=== PATIENT | male | born 1950 | race Caucasian/White ===

== ENCOUNTER → 2017-05-22 09:14 | Outpatient (CLI) | payer MEDICARE, SELFPAY ==
--- NOTE | 2017-05-22 09:20 | XR_ITS ---
XR shoulder RT min 2V HISTORY: ITS.REASON: RT SHOULDER PAIN ORDERING PHYSICIAN: Kaden Smith MD PATIENT AGE: 67 years COMPARISON: None FINDINGS: Mild acromioclavicular arthropathy is present with mild spurring. May result in impingement symptomatology upon the rotator cuff and may be better evaluated with MRI if clinically warranted. The glenohumeral joint is unremarkable. No significant subacromial stenosis. No fracture or dislocation. No lytic change. IMPRESSION: Mild acromioclavicular arthropathy
== END ==
PROVIDERS: PCP Internal Medicine Adolescent Medicine; Visit Provider Internal Medicine Adolescent Medicine
DX: M25.511 Pain in right shoulder (principal)
CPT/HCPCS: 73030

== ENCOUNTER 2017-06-20 13:00 | Outpatient (RCR) | payer MEDICARE, SELFPAY ==
--- NOTE | 2017-05-28 11:54 | HMH.PTOPEV ---
Rehab Outpatient Evaluation Rehab OP Evaluation Start: 05/28/17 11:40 Freq: Status: Active Protocol: Document 05/28/17 11:40 [facility] (Rec: 05/28/17 11:54 [facility] [id number] Electronically Signed By Jody Avery OT 05/28/17 11:40 Outpatient Therapy Subjective History Subjective History Pt is a 67 year old male who reports to therapy for initial evaluation to right shoulder. Pt reports at the end of April, he began having sharp pains in his right shoulder. Pt does not recall a specific injury that would have caused the pain. Pt had an x-ray completed that showed right shoulder arthritis. Pt reports intermittent pain during activities and decreased AROM at right shoulder. Pt is right hand dominant. 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 Pt demonstrates with decreased AROM at right shoulder, slight decreased strength, and pain. Pt will continue to be seen twice a week to address these deficits . Chief Complaint Pain Stiff Clicks Symptom Type Ache Throb Sharp Dull Symptoms Relieved By Prescription Meds Symptoms Aggravated By Physical Activity Lifting Prior Functional Limitations None Current Functional Limitations Reaching Lifting Housework Recreation Activity Symptom Description Intermittent Activity Dependent Level of pain today (0-10) 2 Pain scale - at its best (0-10) 2 Pain scale - at its worst (0-10) 6 Shoulder/Elbow Eval Shoulder Objective Measurements Palpation Tenderness tenderness shoulder exam standard right tenderness over the bicipital tendon right shoulder exam standard tenderness over the SA bursa shoulder right exam standard Shoulder Palpation Findings Tenderness Shoulder ROM Right Shoulder ROM Limitati
== END 2017-06-20 13:01 | disposition home or self-care (01) ==
LOC: OT 13:00
PROVIDERS: Family Provider Internal Medicine Adolescent Medicine; PCP Internal Medicine Adolescent Medicine; Visit Provider Internal Medicine Adolescent Medicine
DX: M25.511 Pain in right shoulder (principal)
CPT/HCPCS: 97014; 97110; 97165; G0283

== ENCOUNTER → 2017-08-23 07:34 | Outpatient (CLI) | payer MEDICARE, SELFPAY ==
[2017-08-23 10:14] LABS: Alanine Aminotransferase 36 U/L (12-78); Albumin Level 3.9 gm/dL (3.4-5.0); Albumin/Globulin Ratio 1.1 (1.1-1.8); Alkaline Phosphatase 81 U/L (46-116); Anion Gap 15.3 mEq/L (5-15); Aspartate Amino Transferase 26 U/L (15-37); Bilirubin,Total 0.6 mg/dL (0.2-1.0); Blood Urea Nitrogen 13 mg/dL (7-18); Calcium 8.9 mg/dL (8.5-10.1); Carbon Dioxide 26 mmol/L (21.0-32.0); Chloride 104 mmol/L (98-107); Chol/HDL Ratio 3.3 (1-3.5); Cholesterol 153 mg/dL (140-200); Estimated Glomerular Filt Rate 75 ml/min (>60); GFR (African American) 90 ML/MIN (>60); Globulin 3.4 gm/dl (1.3-3.2); Glucose 117 mg/dL (74-106); HDL Cholesterol 46 mg/dL (27-67); LDL Cholesterol 79 mg/dL (0-130); Potassium 4.3 mmoL/L (3.5-5.1); Sodium 141 mmol/L (136-145); Total Protein,Serum 7.3 gm/dL (6.4-8.2); Triglycerides 141 mg/dL (30-200); VLDL Cholesterol 28 mg/dL (0-40)
[2017-08-24 18:35] LABS: Microalbumin, Urine <3.0 ug/mL (Not Estab.)
== END ==
PROVIDERS: Visit Provider Internal Medicine Adolescent Medicine
DX: E11.9 Type 2 diabetes mellitus without complications (principal); E78.5 Hyperlipidemia, unspecified; I10 Essential (primary) hypertension
CPT/HCPCS: 36415; 80053; 80061; 82043; 83036

== ENCOUNTER → 2018-01-11 07:47 | Outpatient (CLI) | payer MEDICARE, SELFPAY ==
[2018-01-11 09:42] LABS: Alanine Aminotransferase 38 U/L (12-78); Albumin Level 3.9 gm/dL (3.4-5.0); Albumin/Globulin Ratio 1.2 (1.1-1.8); Alkaline Phosphatase 89 U/L (46-116); Anion Gap 13.2 mEq/L (5-15); Aspartate Amino Transferase 23 U/L (15-37); Bilirubin,Total 0.7 mg/dL (0.2-1.0); Blood Urea Nitrogen 24 mg/dL (7-18); Calcium 8.6 mg/dL (8.5-10.1); Carbon Dioxide 28 mmol/L (21.0-32.0); Chloride 103 mmol/L (98-107); Creatinine,Serum 1.24 mg/dL (0.70-1.30); Estimated Glomerular Filt Rate 58 ml/min (>60); GFR (African American) 71 ML/MIN (>60); Globulin 3.3 gm/dl (1.3-3.2); Glucose 136 mg/dL (74-106); Potassium 4.2 mmoL/L (3.5-5.1); Sodium 140 mmol/L (136-145); Total Protein,Serum 7.2 gm/dL (6.4-8.2)
[2018-01-11 09:44] LABS: Hemoglobin A1C 6.6 % (0.0-7.0)
== END ==
PROVIDERS: PCP Internal Medicine Adolescent Medicine; Visit Provider Internal Medicine Adolescent Medicine
DX: E11.9 Type 2 diabetes mellitus without complications (principal)
CPT/HCPCS: 36415; 80053; 83036

== ENCOUNTER → 2018-03-04 07:10 | Outpatient (CLI) | payer MEDICARE, SELFPAY ==
[2018-03-04 08:42] LABS: Basophils % 0.5 % (0.1-2.0); Eosinophils # 0.2 K/mm3 (0.0-0.4); Eosinophils % 2.8 % (0.1-12.0); Hemoglobin 13.5 g/dL (14.1-18.0); Lymphocytes # 1.4 K/mm3 (0.7-4.5); Lymphocytes % 23.6 % (10-50); Mean Corpuscular HGB Conc 33.8 g/dL (31.8-35.4); Mean Corpuscular Hemoglobin 29.2 pg (27.0-31.2); Mean Corpuscular Volume 86.4 fl (80-94); Mean Platelet Volume 7.2 fl (7.4-10.4); Monocytes # 0.4 K/mm3 (0.1-1.0); Monocytes % 6.4 % (1.7-9.3); Neutrophils # 4.1 K/mm3 (1.8-7.8); Neutrophils % 66.8 % (37.0-80.0); Platelet Count 210 K/mm3 (142-424); Red Blood Count 4.63 M/mm3 (4.60-6.20); Red Cell Distribution Width 13.4 % (11.5-17.5); White Blood Count 6.1 K/mm3 (4.8-10.8)
[2018-03-04 08:44] LABS: Hemoglobin A1C 6.4 % (0.0-7.0)
[2018-03-04 09:02] LABS: Alanine Aminotransferase 32 U/L (12-78); Albumin Level 3.9 gm/dL (3.4-5.0); Albumin/Globulin Ratio 1.2 (1.1-1.8); Alkaline Phosphatase 99 U/L (46-116); Anion Gap 13.3 mEq/L (5-15); Aspartate Amino Transferase 15 U/L (15-37); Bilirubin,Total 0.5 mg/dL (0.2-1.0); Blood Urea Nitrogen 17 mg/dL (7-18); Calcium 8.6 mg/dL (8.5-10.1); Carbon Dioxide 26 mmol/L (21.0-32.0); Chloride 104 mmol/L (98-107); Chol/HDL Ratio 3.3 (1-3.5); Cholesterol 147 mg/dL (140-200); Estimated Glomerular Filt Rate 67 ml/min (>60); GFR (African American) 81 ML/MIN (>60); Globulin 3.3 gm/dl (1.3-3.2); Glucose 144 mg/dL (74-106); HDL Cholesterol 45 mg/dL (27-67); LDL Cholesterol 77 mg/dL (0-130); Potassium 4.3 mmoL/L (3.5-5.1); Sodium 139 mmol/L (136-145); Total Protein,Serum 7.2 gm/dL (6.4-8.2); Triglycerides 125 mg/dL (30-200); VLDL Cholesterol 25 mg/dL (0-40)
== END ==
PROVIDERS: Visit Provider Internal Medicine Adolescent Medicine
DX: E11.9 Type 2 diabetes mellitus without complications (principal); E78.5 Hyperlipidemia, unspecified; I10 Essential (primary) hypertension
CPT/HCPCS: 36415; 80053; 80061; 83036; 85025

== ENCOUNTER → 2018-03-28 10:48 | Outpatient (CLI) | payer MEDICARE, SELFPAY ==
[2018-04-01 13:58] LABS: H. pylori Breath Test Negative (Negative)
== END ==
PROVIDERS: Visit Provider Surgery
DX: A04.8 Other specified bacterial intestinal infections (principal)
CPT/HCPCS: 83013

== ENCOUNTER → 2018-05-01 08:08 | Outpatient (CLI) | payer MEDICARE, SELFPAY ==
--- NOTE | 2018-05-01 08:10 | US_ITS ---
US gallbladder Ordering Physician: Deejay Webber MD Patient Age: 68 years: Male HISTORY: ITS.REASON: RUQ pain abdominal pain. TECHNIQUE: Ultrasound right upper quadrant MW COMPARISON :CT abdomen and pelvis 01/13/2017 FINDINGS Pancreas. Only fair visualization of gallbladder. Not optimally seen Partial obscured by gas. . Limited visualization of head, body and medial tail pancreas grossly unremarkable. Liver. Subtle fatty changes but no focal lesions. No biliary ductal dilatation. Portal vein normal direction flow in caliber. Common duct normal caliber 3.5 mm at hilum of liver Gallbladder. No discrete gallstones. Minimal sludge. No gallbladder wall thickening. Right kidney. Normal size. No obstruction nor mass. 10 cm length. Cortex well-maintained. The previous CT 2016 & 2013 demonstrated a small 15 mm cyst along the lateral margin right kidney, lower pole. This is not identified on today's ultrasound -----IMPRESSION: Gallbladder. No gallstones. No wall thickening. Minimal sludge Common duct normal. Liver. . No focal lesion Suggestion of subtle fatty change
== END ==
PROVIDERS: PCP Internal Medicine Adolescent Medicine; Visit Provider Surgery
DX: R10.11 Right upper quadrant pain (principal)
CPT/HCPCS: 76705

== ENCOUNTER 2018-07-17 11:00 | Outpatient (RCR) | payer MEDICARE, SELFPAY ==
--- NOTE | 2018-06-04 14:09 | HMH.PTOPEV ---
PT Outpatient Evaluation Rehab PT Outpatient Evaluation Start: 06/04/18 13:05 Freq: Status: Active Protocol: Document 06/04/18 13:47 DARRION (Rec: 06/04/18 14:08 DARRION [id number]) Electronically Signed By Tiago Donohue, PT 06/04/18 13:47 Outpatient Therapy Subjective History Subjective History Patient is a 68 year old male presenting to outpatient PT with reports of sub-acute cervical spine pain of insidious onset starting approx 3 months ago. No recent diagnostics to reports. 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 Some symptom relief noted with biofreeze and salon-pas/ lidocaine patches. Comorbidites include OA and diabetes. Chief Complaint Pain Stiff Clicks Symptom Type Sharp Symptoms Relieved By Rest/Positioning Heat Ice OTC Meds Symptoms Aggravated By Physical Activity Lifting Prior Functional Limitations None Current Functional Limitations Reaching Lifting Housework Sleeping Recreation Activity Symptom Description Intermittent Level of pain today (0-10) 3 Pain scale - at its best (0-10) 0 Pain scale - at its worst (0-10) 4 Cervical Eval Palpation Cervical Muscles R Cervical Paraspinal L Cervical Paraspinal R Suboccipital L Suboccipital Cervical/Thoracic Palpation Findings Tenderness Posture Head/C-Spine Posture Sitting Position C-Spine Flattened Flexibility Deficits Upper Trapezius Muscle Length (R) Moderate Tightness (L) Moderate Tightness Levaetor Scapulae Muscle Length (R) Moderate Tightness (L) Moderate Tightness Scalene Group Muscle Length (R) Moderate Tightness (L) Moderate Tightness Pectoralis Minor Muscle Length (R) Moderate Tightness (L) Moderate Tightness Passive Joint Mobility Cervical PIVM Dec: R OA L OA
== END 2018-07-17 11:05 | disposition home or self-care (01) ==
LOC: PT 11:00
PROVIDERS: Visit Provider Internal Medicine Adolescent Medicine
DX: M54.2 Cervicalgia (principal)
CPT/HCPCS: 97010; 97012; 97014; 97035; 97110; 97140; 97163; G0283

== ENCOUNTER → 2018-08-07 07:51 | Outpatient (CLI) | payer MEDICARE, SELFPAY | PROVIDERS: PCP Internal Medicine Adolescent Medicine; Visit Provider Internal Medicine Adolescent Medicine | DX: R55 Syncope and collapse (principal); R53.83 Other fatigue; I10 Essential (primary) hypertension; R06.02 Shortness of breath | CPT/HCPCS: 93017 ==

== ENCOUNTER → 2018-09-08 07:40 | Outpatient (CLI) | payer MEDICARE, SELFPAY ==
--- NOTE | 2018-09-08 07:43 | CA_ITS ---
PROCEDURE: 2-D M-mode and color Doppler study INDICATIONS FOR THE TEST: Chest pain COPD Heart Murmur Tobacco Smoking Palpitations Fatigue+ Syncope Edema Hypertension+Diabetes Mellitus+ Rheumatic Fever SOB VALADEZ Obesity Hyperlipidemia+ Family History HD Additional History ABN GXT, GERD, STENTS 09/05/18 PATIENT INFORMATION HEIGHT: 72 WEIGHT:208 GENDER: Male B/P:128/63 2-D/M-MODE INTERPRETATION: 2-D MEASUREMENTS OBSERVED VALUES IN CMS Right Ventricular Dimension (RVDd) 1.9 Interventricular Septum (Thickness)(IVsd) 1.6 Left Ventricular Internal Dimensions(LVIDd) 4.9 Left Ventricular Posterior Wall (Thickness)(LVPWd) 0.8 Aortic Root 3.3 Aortic Cusp Separation 2.1 Left Atrial Dimensions (LAD) 3.4 2D 1. Left atrium is mildly enlarged, left ventricle is normal size, mild concentric left ventricular hypertrophy, visually estimated to 55% with no regional wall motion abnormality. 2. The right atrium and right ventricle is normal size and contractility. 3. The aortic valve is thickened and calcified difficult to display mobility 4. The mitral and tricuspid valve are grossly normal. 5. The pulmonic valve is poorly present. 6. No significant pericardial effusion noted. DOPPLER INTERROGATION: Doppler interrogation of the aortic, mitral and tricuspid valvular presence of mild mitral and tricuspid regurgitation tricuspid regurgitation jet velocity is inadequate for calculation of the right ventricular systolic pressure, grade 1 diastolic dysfunction seen with tissue Doppler evidence of raised left atrial pressure. CONCLUSION: 1. Mildly enlarged left atrium, normal left ventricular size, mild concentric left ventricular hypertrophy visually estimated ejection fraction of 55% with no regional wall motion abnormality grade 1 diastolic dysfunction seen with tissue Doppler evidence of raised left atrial pressure. 2. Mild mitral and tricuspid regurgitation 3. No significant pericardial effusion noted.
== END ==
PROVIDERS: PCP Internal Medicine Adolescent Medicine; Visit Provider Internal Medicine
DX: E11.9 Type 2 diabetes mellitus without complications (principal); E78.5 Hyperlipidemia, unspecified; I10 Essential (primary) hypertension; R53.1 Weakness; R55 Syncope and collapse; R94.39 Abnormal result of other cardiovascular function study; Z79.84 Long term (current) use of oral hypoglycemic drugs
CPT/HCPCS: 93306

== ENCOUNTER → 2018-09-16 08:39 | Outpatient (CLI) | payer MEDICARE, SELFPAY ==
[2018-09-16 09:31] LABS: Hemoglobin A1C 6.9 % (0.0-7.0)
[2018-09-16 09:58] LABS: Alanine Aminotransferase 41 U/L (12-78); Albumin Level 3.8 gm/dL (3.4-5.0); Albumin/Globulin Ratio 1.2 (1.1-1.8); Alkaline Phosphatase 89 U/L (46-116); Anion Gap 15.9 mEq/L (5-15); Aspartate Amino Transferase 27 U/L (15-37); Bilirubin,Total 0.7 mg/dL (0.2-1.0); Blood Urea Nitrogen 23 mg/dL (7-18); Calcium 8.4 mg/dL (8.5-10.1); Carbon Dioxide 25 mmol/L (21.0-32.0); Chloride 103 mmol/L (98-107); Creatinine,Serum 1.34 mg/dL (0.70-1.30); Estimated Glomerular Filt Rate 53 ml/min (>60); GFR (African American) 64 ML/MIN (>60); Globulin 3.3 gm/dl (1.3-3.2); Glucose 147 mg/dL (74-106); Potassium 3.9 mmoL/L (3.5-5.1); Sodium 140 mmol/L (136-145); Total Protein,Serum 7.1 gm/dL (6.4-8.2)
== END ==
PROVIDERS: Visit Provider Internal Medicine Adolescent Medicine
DX: E11.9 Type 2 diabetes mellitus without complications (principal); Z79.84 Long term (current) use of oral hypoglycemic drugs
CPT/HCPCS: 36415; 80053; 83036

== ENCOUNTER 2018-09-18 08:48 | Outpatient (RCR) | payer MEDICARE, SELFPAY | END 2018-12-15 13:51 | disposition home or self-care (01) | LOC: PT 08:48 | PROVIDERS: Visit Provider Internal Medicine | DX: Z95.5 Presence of coronary angioplasty implant and graft (principal) | CPT/HCPCS: 93798 ==

== ENCOUNTER → 2019-02-02 07:37 | Outpatient (CLI) | payer MEDICARE, SELFPAY ==
[2019-02-02 08:24] LABS: Basophils % 0.7 % (0.1-2.0); Eosinophils # 0.3 K/mm3 (0.0-0.4); Eosinophils % 4.4 % (0.1-12.0); Hematocrit 38.6 % (42.0-52.0); Hemoglobin 13.2 g/dL (14.1-18.0); Lymphocytes # 1.4 K/mm3 (0.7-4.5); Lymphocytes % 22.3 % (10-50); Mean Corpuscular HGB Conc 34.2 g/dL (31.8-35.4); Mean Corpuscular Hemoglobin 31.1 pg (27.0-31.2); Mean Corpuscular Volume 90.7 fl (80-94); Mean Platelet Volume 7.6 fl (7.4-10.4); Monocytes # 0.4 K/mm3 (0.1-1.0); Monocytes % 6.4 % (1.7-9.3); Neutrophils # 4.3 K/mm3 (1.8-7.8); Neutrophils % 66.2 % (37.0-80.0); Platelet Count 206 K/mm3 (142-424); Red Blood Count 4.26 M/mm3 (4.60-6.20); Red Cell Distribution Width 12.9 % (11.5-17.5); White Blood Count 6.4 K/mm3 (4.8-10.8)
[2019-02-02 10:03] LABS: Alanine Aminotransferase 27 U/L (12-78); Albumin Level 3.8 gm/dL (3.4-5.0); Albumin/Globulin Ratio 1.2 (1.1-1.8); Alkaline Phosphatase 97 U/L (46-116); Anion Gap 11.8 mEq/L (5-15); Aspartate Amino Transferase 18 U/L (15-37); Bilirubin,Total 0.8 mg/dL (0.2-1.0); Blood Urea Nitrogen 20 mg/dL (7-18); Calcium 8.7 mg/dL (8.5-10.1); Carbon Dioxide 28 mmol/L (21.0-32.0); Chloride 104 mmol/L (98-107); Chol/HDL Ratio 3.2 (1-3.5); Cholesterol 128 mg/dL (140-200); Estimated Glomerular Filt Rate 55 ml/min (>60); GFR (African American) 66 ML/MIN (>60); Globulin 3.1 gm/dl (1.3-3.2); Glucose 150 mg/dL (74-106); HDL Cholesterol 40 mg/dL (27-67); LDL Cholesterol 64 mg/dL (0-130); Potassium 4.8 mmoL/L (3.5-5.1); Sodium 139 mmol/L (136-145); Total Protein,Serum 6.9 gm/dL (6.4-8.2); Triglycerides 122 mg/dL (30-200); VLDL Cholesterol 24 mg/dL (0-40)
[2019-02-02 11:08] LABS: Hemoglobin A1C 6.8 % (0.0-7.0)
== END ==
PROVIDERS: Visit Provider Internal Medicine Adolescent Medicine
DX: E11.9 Type 2 diabetes mellitus without complications (principal); E78.5 Hyperlipidemia, unspecified; I10 Essential (primary) hypertension; Z79.84 Long term (current) use of oral hypoglycemic drugs
CPT/HCPCS: 36415; 80053; 80061; 83036; 85025

== ENCOUNTER → 2019-05-11 10:07 | Outpatient (CLI) | payer MEDICARE, SELFPAY ==
--- NOTE | 2019-05-11 10:42 | XR_ITS ---
PROCEDURE: XR CHEST 2V CLINICAL HISTORY: dyspnea COMPARISON: CXR CHEST(2 VIEWS-NOT PORTABLE) from 01/13/2017 FINDINGS: The cardiomediastinal silhouette and pulmonary vascularity are within normal limits. The lungs are clear without infiltrates, suspicious nodules, or pleural effusions. Linear densities in the right perihilar lung field are consistent with scarring. Unchanged bilateral calcified granulomas are noted. Coronary stent is incidentally noted. No acute bony abnormalities. IMPRESSION: No acute findings. Dictated by: Clem Guerrero 05/11/2019 15:10 Electronically signed by Clem Guerrero in [facility] 05/11/2019 15:10
== END ==
PROVIDERS: PCP Internal Medicine Adolescent Medicine; Visit Provider Internal Medicine
DX: I25.10 Atherosclerotic heart disease of native coronary artery without angina pectoris; R06.00 Dyspnea, unspecified; E78.5 Hyperlipidemia, unspecified; I10 Essential (primary) hypertension; Z95.5 Presence of coronary angioplasty implant and graft
CPT/HCPCS: 71046

== ENCOUNTER → 2019-05-16 07:45 | Outpatient (CLI) | payer MEDICARE, SELFPAY ==
[2019-05-16 08:48] LABS: Chloride 103 mmol/L (98-107)
[2019-05-16 08:49] LABS: Potassium 4.7 mmoL/L (3.5-5.1); Sodium 139 mmol/L (136-145)
[2019-05-16 08:51] LABS: Blood Urea Nitrogen 19 mg/dl (9-20); Estimated Glomerular Filt Rate 67 ml/min (>60); GFR (African American) 81 ML/MIN (>60)
[2019-05-16 08:52] LABS: Anion Gap 14.7 mEq/L (5-15); Calcium 9.1 mg/dl (8.4-10.2); Carbon Dioxide 26 mmol/L (22.0-30.0); Glucose 148 mg/dl (74-100)
== END ==
PROVIDERS: Visit Provider Urology
DX: E78.5 Hyperlipidemia, unspecified (principal); I10 Essential (primary) hypertension; I25.10 Atherosclerotic heart disease of native coronary artery without angina pectoris; R06.00 Dyspnea, unspecified; Z95.5 Presence of coronary angioplasty implant and graft
CPT/HCPCS: 36415; 80048

== ENCOUNTER → 2019-09-09 07:49 | Outpatient (CLI) | payer MEDICARE, SELFPAY ==
[2019-09-09 08:34] LABS: Basophils % 0.4 % (0.1-2.0); Eosinophils # 0.2 K/mm3 (0.0-0.4); Eosinophils % 3.1 % (0.1-12.0); Hematocrit 37.8 % (42.0-52.0); Hemoglobin 13.4 g/dL (14.1-18.0); Lymphocytes # 1.3 K/mm3 (0.7-4.5); Mean Corpuscular HGB Conc 35.5 g/dL (31.8-35.4); Mean Corpuscular Hemoglobin 30.9 pg (27.0-31.2); Mean Corpuscular Volume 86.9 fl (80-94); Mean Platelet Volume 7.5 fl (7.4-10.4); Monocytes # 0.3 K/mm3 (0.1-1.0); Neutrophils # 3.8 K/mm3 (1.8-7.8); Neutrophils % 67.5 % (37.0-80.0); Platelet Count 196 K/mm3 (142-424); Red Blood Count 4.35 M/mm3 (4.60-6.20); Red Cell Distribution Width 13.2 % (11.5-17.5); White Blood Count 5.7 K/mm3 (4.8-10.8)
[2019-09-09 08:53] LABS: Chloride 105 mmol/L (98-107)
[2019-09-09 08:54] LABS: Potassium 4.8 mmoL/L (3.5-5.1); Sodium 138 mmol/L (136-145)
[2019-09-09 08:56] LABS: Alanine Aminotransferase 30 U/L (12-78); Albumin/Globulin Ratio 1.4 (1.1-1.8); Alkaline Phosphatase 100 U/L (38-126); Anion Gap 8.8 mEq/L (5-15); Aspartate Amino Transferase 28 U/L (17-59); Bilirubin,Total 0.9 mg/dl (0.2-1.3); Blood Urea Nitrogen 18 mg/dl (9-20); Carbon Dioxide 29 mmol/L (22.0-30.0); Estimated Glomerular Filt Rate 67 ml/min (>60); GFR (African American) 81 ML/MIN (>60); Globulin 2.8 g/dL (1.3-3.2); Total Protein,Serum 6.8 g/dl (6.3-8.2)
[2019-09-09 08:57] LABS: Chol/HDL Ratio 3.3 (1-3.5); Cholesterol 127 mg/dl (140-200); Glucose 161 mg/dl (74-100); HDL Cholesterol 38 mg/dl (40-60); Triglycerides 138 mg/dl (30-150); VLDL Cholesterol 28 mg/dL (0-40)
[2019-09-09 09:08] LABS: Direct LDL Cholesterol 71.92 mg/dL (100-129)
[2019-09-09 09:59] LABS: Hemoglobin A1C 7.1 % (4.0-6.0)
== END ==
PROVIDERS: Visit Provider Internal Medicine Adolescent Medicine
DX: I25.10 Atherosclerotic heart disease of native coronary artery without angina pectoris (principal); E78.5 Hyperlipidemia, unspecified; E11.9 Type 2 diabetes mellitus without complications; Z79.84 Long term (current) use of oral hypoglycemic drugs
CPT/HCPCS: 36415; 80053; 80061; 83036; 85025

== ENCOUNTER → 2020-03-10 16:14 | Outpatient (CLI) | payer MEDICARE, SELFPAY ==
--- NOTE | 2020-03-10 16:40 | CT_ITS ---
PROCEDURE: CT ANGIO CHEST CLINCIAL INDICATION: OTHER CHEST PAIN Sharp chest pain in center the chest, severe pain in the back the COMPARISON: No exams were available for comparison TECHNIQUE: IV Contrast: 70ML Isovue 370 Axial images obtained with sagittal and coronal reformats. All CT scans at the facility use one or more dose reduction, viz: automated exposure control, ma/kV adjustment per patient size (including targeted exams where dose is matched to indication, i.e. head), or iterative reconstruction technique. FINDINGS: HEART AND MEDIASTINAL STRUCTURES: No evidence of pulmonary embolus, aortic aneurysm, or dissection. LUNGS AND PLEURAL SPACES: Scattered areas scarring and/or atelectatic changes noted with evidence of old granulomatous disease. There is a tubular shaped density in the right upper lobe measuring 3.5 x 1.1 cm. This is associated with some atelectatic change in the right upper lobe. The a small oval density is present in the left perihilar region at 1 x 0.6 cm with an additional opacity in the left perihilar region at 1.5 x 0.5 cm with some air density noted at the distal aspect of this abnormality. There is 11 mm nodular density in the left suprahilar area within left upper lobe medially. A 6 mm nodules present in the right apex and may contain a small focus of calcification. BONY STRUCTURES: No acute bony abnormalities apparent. UPPER ABDOMEN: Unremarkable. ADDITIONAL FINDINGS: Gynecomastia IMPRESSION: 1. No evidence of pulmonary embolus. 2. Scattered areas of atelectasis and/or fibrotic change. 3. Tubular density in the right upper lobe with a oval nodules in the left perihilar region. These could be due to areas of dilated fluid-filled bronchi, inflammatory or infectious nodules, or even even neoplasm. The 6 mm right upper lobe nodule and 1 cm irregular opacity left upper lobe medially also noted. Suggest 8-12 week follow-up to confirm stability or resolution. If these areas persist then, PET CT may be needed for further evaluation. Dictated by: David Guy MD 03/11/2020 05:40 David Guy MD in [facility] 03/11/2020 05:40
[2020-03-10 17:24] LABS: Basophils % 0.6 % (0.1-2.0); Eosinophils # 0.2 K/mm3 (0.0-0.4); Eosinophils % 3.3 % (0.1-12.0); Hematocrit 43.3 % (42.0-52.0); Hemoglobin 14.8 g/dL (14.1-18.0); Lymphocytes # 1.6 K/mm3 (0.7-4.5); Lymphocytes % 23.7 % (10-50); Mean Corpuscular HGB Conc 34.3 g/dL (31.8-35.4); Mean Corpuscular Hemoglobin 30.3 pg (27.0-31.2); Mean Corpuscular Volume 88.2 fl (80-94); Mean Platelet Volume 7.3 fl (7.4-10.4); Monocytes # 0.5 K/mm3 (0.1-1.0); Monocytes % 7.5 % (1.7-9.3); Neutrophils # 4.3 K/mm3 (1.8-7.8); Neutrophils % 64.9 % (37.0-80.0); Platelet Count 228 K/mm3 (142-424); Red Blood Count 4.91 M/mm3 (4.60-6.20); Red Cell Distribution Width 13.3 % (11.5-17.5); White Blood Count 6.6 K/mm3 (4.8-10.8)
[2020-03-10 17:38] LABS: Alanine Aminotransferase 44 U/L (12-78); Albumin Level 4.8 g/dl (3.5-5.0); Albumin/Globulin Ratio 1.5 (1.1-1.8); Alkaline Phosphatase 100 U/L (38-126); Anion Gap 12.9 mEq/L (5-15); Aspartate Amino Transferase 40 U/L (17-59); Bilirubin,Total 0.8 mg/dl (0.2-1.3); Blood Urea Nitrogen 18 mg/dl (9-20); Calcium 9.9 mg/dl (8.4-10.2); Carbon Dioxide 31 mmol/L (22.0-30.0); Chloride 100 mmol/L (98-107); Estimated Glomerular Filt Rate 55 ml/min (>60); GFR (African American) 66 ML/MIN (>60); Globulin 3.2 g/dL (1.3-3.2); Glucose 156 mg/dl (74-100); Potassium 4.9 mmoL/L (3.5-5.1); Sodium 139 mmol/L (136-145)
[2020-03-10 17:43] LABS: D-Dimer 0.83 ug/mL (0.15-8.0)
== END ==
PROVIDERS: PCP Internal Medicine Adolescent Medicine; Visit Provider Internal Medicine Adolescent Medicine
DX: R07.89 Other chest pain (principal); K21.9 Gastro-esophageal reflux disease without esophagitis
CPT/HCPCS: 36415; 71275; 80053; 85025; 85378; Q9967

== ENCOUNTER → 2020-03-17 09:49 | Outpatient (CLI) | payer MEDICARE, SELFPAY ==
[2020-03-17 10:29] LABS: Erythrocyte Sedimentation Rate 16 mm/hr (0-20)
[2020-03-18 17:05] LABS: RA Latex Turbid. <10.0 IU/mL (0.0-13.9)
[2020-03-21 13:06] LABS: Angiotensin Converting Enzyme 39 U/L (14-82)
[2020-03-21 16:55] LABS: Anti-Centromere B Antibodies <0.2 AI (0.0-0.9); Anti-Jo-1 <0.2 AI (0.0-0.9); Anti-Smith Antibody <0.2 AI (0.0-0.9); Antichromatin Antibodies <0.2 AI (0.0-0.9); Antiscleroderma-70 Antibodies <0.2 AI (0.0-0.9); RNP Antibodies <0.2 AI (0.0-0.9); Sjogren's Anti-SS-A <0.2 AI (0.0-0.9); Sjogren's Anti-SS-B <0.2 AI (0.0-0.9)
[2020-03-22 08:23] LABS: Anti-DNA (DS) Ab Qn 3 IU/mL (0-9)
== END ==
PROVIDERS: Visit Provider Internal Medicine Adolescent Medicine
DX: R91.8 Other nonspecific abnormal finding of lung field (principal); Z86.2 Personal history of diseases of the blood and blood-forming organs and certain disorders involving the immune mechanism
CPT/HCPCS: 36415; 82164; 85651; 86225; 86235; 86431

== ENCOUNTER → 2020-04-06 08:10 | Outpatient (CLI) | payer MEDICARE, SELFPAY ==
[2020-04-06 09:10] LABS: Alanine Aminotransferase 39 U/L (12-78); Albumin Level 4.4 g/dl (3.5-5.0); Albumin/Globulin Ratio 1.5 (1.1-1.8); Alkaline Phosphatase 105 U/L (38-126); Anion Gap 12.7 mEq/L (5-15); Aspartate Amino Transferase 38 U/L (17-59); Blood Urea Nitrogen 19 mg/dl (9-20); Calcium 9.3 mg/dl (8.4-10.2); Carbon Dioxide 29 mmol/L (22.0-30.0); Chloride 101 mmol/L (98-107); Chol/HDL Ratio 3.4 (1-3.5); Cholesterol 147 mg/dl (140-200); Estimated Glomerular Filt Rate 60 ml/min (>60); GFR (African American) 73 ML/MIN (>60); Glucose 170 mg/dl (74-100); HDL Cholesterol 43 mg/dl (40-60); Potassium 4.7 mmoL/L (3.5-5.1); Sodium 138 mmol/L (136-145); Total Protein,Serum 7.4 g/dl (6.3-8.2); Triglycerides 197 mg/dl (30-150); VLDL Cholesterol 39 mg/dL (0-40)
[2020-04-06 09:21] LABS: Direct LDL Cholesterol 75.45 mg/dL (100-129)
[2020-04-06 10:46] LABS: Hemoglobin A1C 7.4 % (4.0-6.0)
== END ==
PROVIDERS: Visit Provider Internal Medicine Adolescent Medicine
DX: E11.9 Type 2 diabetes mellitus without complications (principal); E78.5 Hyperlipidemia, unspecified; Z79.84 Long term (current) use of oral hypoglycemic drugs
CPT/HCPCS: 36415; 80053; 80061; 83036

== ENCOUNTER → 2020-04-11 10:05 | Outpatient (CLI) | payer MEDICARE, SELFPAY ==
[2020-04-11 11:19] LABS: Coronavirus 19 IgG Antibody Positive (Negative); Coronavirus 19 IgM Antibody Negative (Negative)
== END ==
PROVIDERS: Visit Provider Surgery
DX: Z01.812 Encounter for preprocedural laboratory examination (principal); Z86.16 Personal history of COVID-19; R13.10 Dysphagia, unspecified; Z13.810 Encounter for screening for upper gastrointestinal disorder
CPT/HCPCS: 36415; 86328

== ENCOUNTER 2020-04-12 07:56 | Day surgery (SDC) | payer MEDICARE, SELFPAY ==
[2020-04-08 15:38] VITALS: BMI 27.8
[2020-04-12 08:13] VITALS: BP 149/71; PULSE 60; RESP 20; TEMP 36.6; O2SAT 98
[2020-04-12 08:23] VITALS: O2SAT 98
--- NOTE | 2020-04-12 08:33 | P.PN_ITS ---
[facility] Anesthesia Checklist - Patient Identification Patient Identification: Arm Band - Structural Data Admitted From: Home Planned Operative Procedure/s: tiva Consent for Planned Operative Procedure(s) Verified: Yes Verified Documents: Surgical Consent - Additional verifications Anesthesia Reactions: No - Anesthesia Plan Anesthesia Risk discussed: Yes Anesthesia Plan: Verified ASA Class: II Anesthesia Type: General [facility] History I have reviewed the patient's past medical history: Yes Medical History: Reports:: Coronary Artery Disease, Diabetes Mellitus Type 2, Gastroesophageal Reflux Disease(GERD), Hyperlipidemia, Hypertension, Kidney Stones Denies:: Cancer, Diabetes Mellitus Type 1, Internal Pacemaker, Lung Disease, MRSA, Seizures *Have you ever received a pneumonia vaccine?: Yes *Have you received a flu vaccine this season?: Yes Anesthesia experience/problems:: no problems Other Surgeries: Yes: Cardiac Catheterization, Colonoscopy, Coronary Stent, Other (kidney stones, heel sx). No: Pacemaker Amputation: No Fractures: No - *Social History Last grade of school completed: High school graduate Smoking Status: Never smoker Alcohol Intake: never Alcohol Intake Frequency:: other Substance Use Type: denies use *Occupational Status:: employed, retired Housing: house Household Members: spouse *Travel in the last 8 weeks: None Family Hx:: Cancer, Diabetes
[2020-04-12 08:35] VITALS: BP 100/53; PULSE 62; RESP 18; TEMP 36.7; O2SAT 99
--- NOTE | 2020-04-12 08:35 | HMH.SCOPE ---
- Procedure: Date: 04/12/20 Patient Date of :: 1950 Procedure Performed:: Esophagogastroduodenoscopy with biopsies Indications:: Patient is a 70-year-old male referred by Dr. Kaden Smith for EGD. I had seen him in the past. I had performed EGD and colonoscopy on him on 02/18/2018. He did have a small polyp removed. He was found to have some mild gastritis and had positive H. pylori. At that time he was having some dyspepsia type symptoms and I had performed gallbladder work-up and he had an ultrasound done on 05/01/2018 which was negative for gallstones. Over the past several months he has had some recurrent symptoms consistent with indigestion, and reflux. He increased his pantoprazole. He actually had a severe attack where he had pain in the epigastrium and right upper quadrant radiating through to his back and underwent CT angiogram. He states that he has had symptoms occurring postprandially. He is having to severely limit his diet with very bland foods. Given his symptomatology and prior history of H. pylori I do feel that it may be reasonable to proceed with upper endoscopy initially. This is to be arranged. However, I am highly suspicious for possible gallbladder etiology. If his upper endoscopy is unremarkable may repeat gallbladder work-up. Performing Provider:: Deejay Webber MD Referring Provider:: Kaden Smith MD Sedation:: MAC sedation Procedure:: Patient was taken to endoscopy procedure room. He was positioned in a lateral decubitus position. Adequate intravenous sedation was achieved with anesthesia titration of propofol. Olympus endoscope was inserted via the oropharynx advanced through the esophagus. Esophagus appeared unremarkable. Gastroesophageal junction was encountered. There was no obvious Silva's esophagus. Stomach was cannulated and insufflated. Retroflexion revealed no evidence of any hiatal hernia. Gastric mucosa appeared unremarkable. Pylorus was traversed and the endoscope was advanced past the duodenal sweep. Duodenum appeared unremarkable. Within the gastric lumen gastric biopsy was obtained for CLOtest for H. pylori. Gastric biopsy was obtained for histopathologic analysis. Biopsy was obtained at the gastroesophageal junction. Stomach was desufflated and the endoscope was withdrawn. Findings:: Overall normal-appearing upper endoscopy Recommendations:: I will follow-up on histopathology. I will order a gallbladder ultrasound to be done prior to his follow-up in the office. May require HIDA scan if this is unremarkable for gallstones. Complications:: None Estimated blood obtained (mL): 2
[2020-04-12 08:45] VITALS: BP 110/64; PULSE 64; RESP 16; TEMP 36.7; O2SAT 99
[2020-04-12 08:55] VITALS: BP 112/58; PULSE 60; RESP 16; TEMP 36.7; O2SAT 98
[2020-04-12 09:05] VITALS: BP 125/71; PULSE 59; RESP 16; TEMP 36.7; O2SAT 98
[2020-04-13 11:44] LABS: POC Glucose,Bedside 179 (70-110)
== END 2020-04-12 09:08 | disposition home or self-care (01) ==
PROVIDERS: PCP Internal Medicine Adolescent Medicine; Visit Provider Surgery
PROC: 0DJ08ZZ Inspection of Upper Intestinal Tract, Via Natural or Artificial Opening Endoscopic (ICD-10-PCS; CPT 43235; principal; 2020-04-12 09:00)
DX: R10.11 Right upper quadrant pain (principal); R10.13 Epigastric pain; I25.10 Atherosclerotic heart disease of native coronary artery without angina pectoris; E11.9 Type 2 diabetes mellitus without complications; K21.9 Gastro-esophageal reflux disease without esophagitis; E78.5 Hyperlipidemia, unspecified; I10 Essential (primary) hypertension; Z87.442 Personal history of urinary calculi; Z79.82 Long term (current) use of aspirin; Z79.899 Other long term (current) drug therapy; Z79.84 Long term (current) use of oral hypoglycemic drugs
CPT/HCPCS: 43239; 82962; 87339; 88305

== ENCOUNTER → 2020-04-14 07:43 | Outpatient (CLI) | payer MEDICARE, SELFPAY ==
--- NOTE | 2020-04-14 07:43 | US_ITS ---
PROCEDURE: US GALLBLADDER CLINICAL INDICATION: RUQ pain COMPARISON: No exams were available for comparison FINDINGS: Pancreas: Pancreas is not well delineated due to overlying bowel gas. CT or MRI without and with contrast with pancreatic protocol may provide further evaluation if clinically desired. Liver: Diffuse increased echogenicity of the liver with poor through transmission of sound consistent with hepatic steatosis. No focal liver lesion demonstrated. There is appropriate direction of blood flow within non dilated portal vein. Right kidney: Unremarkable appearing. No hydronephrosis. There is a small right renal measuring 18 mm Gallbladder: No stones are evident. There is no gallbladder wall thickening. Common duct is normal in diameter. May be a small amount of sludge in the gallbladder somewhat difficult to evaluate due to the technique. IMPRESSION: 1. Diffuse increased echogenicity of the liver with poor through transmission of sound consistent with hepatic steatosis. No focal liver lesion demonstrated. There is appropriate direction of blood flow within non dilated portal vein.. 2. Possible small amount of gallbladder sludge Dictated by: David Guy MD 04/14/2020 09:03 David Guy MD in [facility] 04/14/2020 09:03
== END ==
PROVIDERS: PCP Internal Medicine Adolescent Medicine; Visit Provider Surgery
DX: R10.11 Right upper quadrant pain (principal)
CPT/HCPCS: 76705

== ENCOUNTER → 2020-05-02 09:56 | Outpatient (CLI) | payer MEDICARE, SELFPAY ==
--- NOTE | 2020-05-02 09:56 | NM_ITS ---
PROCEDURE: NM HEPATOBILIARY W PHARM CLINICAL INDICATION: Right upper quad pain COMPARISON: US US GALLBLADDER from 04/14/2020 TECHNIQUE: DOSE: 8.22 mCi technetium Choletec and 1.9 mcg of CCK FINDINGS: Homogeneous activity is present within the hepatic parenchyma. Activity is present in the gallbladder by 15 minutes. Activity is present in the small bowel by 10 minutes. The gallbladder ejection fraction is calculated to be 13 percent. The patient did report pain with CCK infusion. IMPRESSION: 1. No evidence of common or cystic duct obstruction. 2. Low gallbladder ejection fraction of 13 percent. Mild pain reported with CCK infusion. These findings may be seen with gallbladder dyskinesia. Correlation with clinical parameters recommended Dictated by: David Guy MD 05/02/2020 13:56 David Guy MD in [facility] 05/02/2020 13:56
--- NOTE | 2020-05-02 11:20 | HMH.ITSHM ---
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 []SILDENAFIL NAPROXEN LOSARTAN CARVEDILOL CLOPIDOGREL JANUVIA PANTOPRAZOLE METFORMIN FUROSEMIDE ATORVASTATIN ASA
== END ==
PROVIDERS: PCP Internal Medicine Adolescent Medicine; Visit Provider Surgery
DX: R10.11 Right upper quadrant pain (principal)
CPT/HCPCS: 78227; A9537; J2805

== ENCOUNTER → 2020-05-20 11:38 | Outpatient (CLI) | payer MEDICARE, SELFPAY ==
--- NOTE | 2020-05-20 12:00 | CT_ITS ---
PROCEDURE: CT CHEST W CON CLINCAL INDICATION: MASS OF RT LUNG Follow-up right lung mass COMPARISON: CT CT ANGIO CHEST from 03/10/2020 TECHNIQUE: IV Contrast: 75ml Isovue 370 Axial images obtained with sagittal and coronal reformats. All CT scans at the facility use one or more dose reduction, viz: automated exposure control, ma/kV adjustment per patient size (including targeted exams where dose is matched to indication, i.e. head), or iterative reconstruction technique. FINDINGS: No mediastinal or hilar mediastinal mass. There are some small paraesophageal lymph nodes present along the right and posterior aspect of the lower esophagus with the largest node measuring approximately 1.4 cm. 6 mm right apical nodule appears stable. Ovoid mass once again noted in the right upper lobe the measuring up to 3.4 by 1 by 1 cm. This is not significantly changed compared to the previous exam. There are fibrotic changes present superior to to this lesion. There is 11 mm nodule in the left suprahilar area of the left upper lobe not significantly changed. An additional han mm opacity is present in the left upper lobe medially unchanged possibly due to an area of scarring. No new nodules are evident. No effusions or infiltrates. An irregular opacity is also present in the right lower lobe at 7 mm not significantly changed associated with some fibrotic change. Incidental note of bilateral gynecomastia. IMPRESSION: Overall stable CT appearance of the chest. Bilateral pulmonary nodules with dominant nodule in the right upper lobe once again noted. Mildly prominent nodes are present in the paraesophageal region as well not significantly changed. The lack of short term resolution argues against acute infection. Neoplasm is therefore consideration. Postinflammatory scarring with old granulomatous disease is also consideration. Suggest PET-CT for further evaluation. Pulmonology consult with bronchoscopy may also be of further value. Dictated by: David Guy MD 05/21/2020 13:23 David Guy MD in [facility] 05/21/2020 13:23
[2020-05-20 12:03] LABS: Blood Urea Nitrogen 20 mg/dl (9-20); Estimated Glomerular Filt Rate 50 ml/min (>60); GFR (African American) 61 ML/MIN (>60)
== END ==
PROVIDERS: PCP Internal Medicine Adolescent Medicine; Visit Provider Internal Medicine Adolescent Medicine
DX: R91.8 Other nonspecific abnormal finding of lung field (principal)
CPT/HCPCS: 36415; 71260; 82565; 84520; Q9967

== ENCOUNTER → 2020-09-02 08:29 | Outpatient (CLI) | payer MEDICARE, SELFPAY ==
[2020-09-02 10:01] LABS: Anion Gap 13.7 mEq/L (5-15); Blood Urea Nitrogen 24 mg/dl (9-20); Calcium 9.1 mg/dl (8.4-10.2); Carbon Dioxide 24 mmol/L (22.0-30.0); Chloride 106 mmol/L (98-107); Estimated Glomerular Filt Rate 60 ml/min (>60); GFR (African American) 73 ML/MIN (>60); Glucose 193 mg/dl (74-100); Potassium 4.7 mmoL/L (3.5-5.1); Sodium 139 mmol/L (136-145)
[2020-09-05 15:31] LABS: Angiotensin Converting Enzyme 29 U/L (14-82)
[2020-09-07 00:03] LABS: Aspergillus flavus Negative (Neg:<1:1); Aspergillus fumigatus Negative (Neg:<1:1); Aspergillus niger Negative (Neg:<1:1); Blastomyces Antibody Negative (Neg:<1:1)
== END ==
PROVIDERS: Visit Provider Internal Medicine Pulmonary Disease
DX: J84.10 Pulmonary fibrosis, unspecified (principal); R06.00 Dyspnea, unspecified; Z20.822 Contact with and (suspected) exposure to COVID-19
CPT/HCPCS: 36415; 80048; 82164; 86606; 86612; U0003

== ENCOUNTER 2020-09-05 08:06 | Day surgery (SDC) | payer MEDICARE, SELFPAY ==
[2020-08-30 12:15] VITALS: BMI 27.1
[2020-09-05] VITALS (13 sets, daily range): BP systolic 97–162; BP diastolic 62–83; PULSE 55–73; RESP 14–20; TEMP 36.1–36.3; O2SAT 93–100
--- NOTE | 2020-09-05 08:53 | P.PN_ITS ---
[facility] Anesthesia Checklist - Structural Data Admitted From: Home Planned Operative Procedure/s: bronchoscopy Consent for Planned Operative Procedure(s) Verified: Yes - Additional verifications Anesthesia Reactions: No - Airway Assessment C-Spine Mobility Assessed: Yes TMJ Mobility Assessed: Yes Dentition: Good Dentition - Neurological Assessment Level of Consciousness: Awake, Alert, Appropriate - Anesthesia Plan Anesthesia Risk discussed: Yes Anesthesia Plan: Verified ASA Class: III Anesthesia Type: General [facility] History I have reviewed the patient's past medical history: Yes Medical History: Reports:: Coronary Artery Disease, Diabetes Mellitus Type 2, Gastroesophageal Reflux Disease(GERD), Hyperlipidemia, Hypertension, Kidney Stones Denies:: Cancer, Diabetes Mellitus Type 1, Internal Pacemaker, Lung Disease, MRSA, Seizures *Have you ever received a pneumonia vaccine?: Yes *Have you received a flu vaccine this season?: Yes Anesthesia experience/problems:: none Other Surgeries: Yes: Cardiac Catheterization, Colonoscopy, Coronary Stent, EGD, Other (kidney stones, heel sx). No: Pacemaker Amputation: No Fractures: No - *Social History Last grade of school completed: High school graduate Smoking Status: Never smoker Alcohol Intake: never Alcohol Intake Frequency:: other Substance Use Type: denies use *Occupational Status:: employed, retired Housing: house Household Members: spouse *Travel in the last 8 weeks: None Family Hx:: Cancer, Diabetes
[2020-09-05 09:16] LABS: POC Glucose,Bedside 165 (70-110)
--- NOTE | 2020-09-05 12:01 | HMH.BRONCH ---
- Procedure: Date: 09/05/20 Patient Date of :: 1950 Procedure Performed:: Bronchoscopy, bronchoalveolar lavage, endobronchial ultrasound with fine-needle aspiration Indications:: Hilar lymphadenopathy Performing Provider:: Scooter Gill MD Referring Provider:: Dr. Clark Sedation:: GA Procedure:: Endobronchial ultrasound with fine-needle aspiration. Airway examination and bronchoalveolar lavage. A clean EBUS bronchoscopy was advanced to the ET tube, with lymph node surveillance performed. Patient noted to have lymphadenopathy at stations 10 L and 4R. No significant Lymphadenopathy noted on the right side. Multiple calcifications were noted since patient 7, no FNA was performed. EBUS FNA with scant lymphoid tissue identified. No evidence of malignancy, granulomatous identified on preliminary examination. EBUS bronchoscopy was retracted and diagnostic bronchoscopy was advanced for airway examination and airways were examined up to subsegmental bronchi. Mild narrowing of the right middle lobe bronchus noted. No obvious secretions/mucous plugging noted. Anthracotic pigmentation noted. Bronchoalveolar lavage was performed in the right middle lobe and was sent for BAL differential,bacterial, fungal and AFB stain culture along with cytopathology. Patient tolerated the procedure well with no complications. Findings:: Please see the procedure note Recommendations:: F/U clinic with final results Complications:: none Estimated blood obtained (mL): 5
--- NOTE | 2020-09-05 12:08 | HMH.ANESI ---
[facility] Anesthesia Record Part I Intake, IV Amount: 900 Estimated blood loss (mL): 10 Urine output (mL): 0 Blood Pressure: 97/66 SaO2: 93 Pulse Rate: 73 Respiratory Rate: 14 Temperature: 97 F Patient is:: Awake Stable to PACU at:: 12:05
--- NOTE | 2020-09-05 12:39 | PC.NURSE ---
1230-MD at bedside, no further orders given 1236-detailed report called to Eben,RN 1239-pt transported to post op via stretcher w/kennedi rails up, pt stable, vss upon discharge from pacu
--- NOTE | 2020-09-08 09:50 | P.PN_ITS ---
[facility] Anesthesia Record Part II Discharge Time: 12:35 Destination: Surgical Day Care (OP Surgery) PACU nurse assessment reviewed?: Yes Patient Condition:: Good Anesthesia Complications:: None Swallowing reflex intact?: Yes Cyanosis?: No Blood Pressure: 132/74 Pulse Rate: 67 Temperature: 97.1 F Mental Status: Alert & Oriented Pain level:: 0 Nausea and/or vomitting:: None Intake, IV Amount: 0
[2020-09-08 09:51] VITALS: BP 132/74; PULSE 67; TEMP 36.2
== END 2020-09-05 13:53 ==
LOC: OR 08:08
PROVIDERS: PCP Internal Medicine Adolescent Medicine; Visit Provider Internal Medicine Pulmonary Disease
DX: R59.0 Localized enlarged lymph nodes (principal); R93.89 Abnormal findings on diagnostic imaging of other specified body structures; K21.9 Gastro-esophageal reflux disease without esophagitis; E11.9 Type 2 diabetes mellitus without complications; I10 Essential (primary) hypertension; Z79.84 Long term (current) use of oral hypoglycemic drugs; Z79.899 Other long term (current) drug therapy
CPT/HCPCS: 31624; 31652; 82962; 88112; 88172; 88173; 88305; J0330

== ENCOUNTER → 2020-09-21 09:35 | Outpatient (CLI) | payer MEDICARE, SELFPAY | PROVIDERS: PCP Internal Medicine Adolescent Medicine; Visit Provider Internal Medicine Pulmonary Disease | DX: R06.00 Dyspnea, unspecified (principal) | CPT/HCPCS: 94060; 94618; 94726; 94729 ==

== ENCOUNTER → 2020-10-10 07:27 | Outpatient (CLI) | payer MEDICARE, SELFPAY ==
[2020-10-10 08:33] LABS: Basophils % 0.4 % (0.1-2.0); Eosinophils # 0.1 K/mm3 (0.0-0.4); Eosinophils % 1.7 % (0.1-12.0); Hematocrit 39.1 % (42.0-52.0); Hemoglobin 13.5 g/dL (14.1-18.0); Lymphocytes # 1.3 K/mm3 (0.7-4.5); Lymphocytes % 19.4 % (10-50); Mean Corpuscular HGB Conc 34.4 g/dL (31.8-35.4); Mean Corpuscular Hemoglobin 29.4 pg (27.0-31.2); Mean Corpuscular Volume 85.6 fl (80-94); Mean Platelet Volume 7.4 fl (7.4-10.4); Monocytes # 0.3 K/mm3 (0.1-1.0); Monocytes % 4.8 % (1.7-9.3); Neutrophils # 4.9 K/mm3 (1.8-7.8); Neutrophils % 73.7 % (37.0-80.0); Platelet Count 204 K/mm3 (142-424); Red Blood Count 4.57 M/mm3 (4.60-6.20); Red Cell Distribution Width 13.4 % (11.5-17.5); White Blood Count 6.6 K/mm3 (4.8-10.8)
[2020-10-10 08:56] LABS: Alanine Aminotransferase 28 U/L (12-78); Albumin Level 4.1 g/dl (3.5-5.0); Albumin/Globulin Ratio 1.5 (1.1-1.8); Alkaline Phosphatase 108 U/L (38-126); Anion Gap 13.7 mEq/L (5-15); Aspartate Amino Transferase 27 U/L (17-59); Bilirubin,Total 0.7 mg/dl (0.2-1.3); Blood Urea Nitrogen 16 mg/dl (9-20); Calcium 8.7 mg/dl (8.4-10.2); Carbon Dioxide 28 mmol/L (22.0-30.0); Chloride 104 mmol/L (98-107); Estimated Glomerular Filt Rate 74 ml/min (>60); GFR (African American) 90 ML/MIN (>60); Globulin 2.7 g/dL (1.3-3.2); Glucose 164 mg/dl (74-100); Potassium 4.7 mmoL/L (3.5-5.1); Sodium 141 mmol/L (136-145); Total Protein,Serum 6.8 g/dl (6.3-8.2)
[2020-10-10 09:01] LABS: C-Reactive Protein 0.8 mg/L (0-4)
[2020-10-10 09:19] LABS: 25-OH Vitamin D, Total 34.1 ng/mL (30-100)
[2020-10-10 09:45] LABS: Vitamin B12 346 pg/mL (239-931)
[2020-10-10 10:24] LABS: Erythrocyte Sedimentation Rate 28 mm/hr (0-20)
[2020-10-12 11:31] LABS: Hemoglobin A1C 7.4 % (4.0-6.0)
== END ==
PROVIDERS: Visit Provider Internal Medicine Adolescent Medicine
DX: E11.9 Type 2 diabetes mellitus without complications (principal); E78.5 Hyperlipidemia, unspecified; I25.10 Atherosclerotic heart disease of native coronary artery without angina pectoris; Z86.2 Personal history of diseases of the blood and blood-forming organs and certain disorders involving the immune mechanism; E66.3 Overweight; Z68.30 Body mass index [BMI] 30.0-30.9, adult; Z79.84 Long term (current) use of oral hypoglycemic drugs
CPT/HCPCS: 80053; 82306; 82607; 83036; 85025; 85651; 86140

== ENCOUNTER → 2020-11-29 09:06 | Outpatient (CLI) | payer MEDICARE, SELFPAY ==
[2020-11-29 09:44] LABS: Basophils % 0.3 % (0.1-2.0); Eosinophils # 0.1 K/mm3 (0.0-0.4); Eosinophils % 1.5 % (0.1-12.0); Hematocrit 40.7 % (42.0-52.0); Hemoglobin 13.5 g/dL (14.1-18.0); Lymphocytes # 1.4 K/mm3 (0.7-4.5); Lymphocytes % 19.6 % (10-50); Mean Corpuscular HGB Conc 33.2 g/dL (31.8-35.4); Mean Corpuscular Hemoglobin 29.8 pg (27.0-31.2); Mean Corpuscular Volume 89.6 fl (80-94); Mean Platelet Volume 7.6 fl (7.4-10.4); Monocytes # 0.4 K/mm3 (0.1-1.0); Monocytes % 5.1 % (1.7-9.3); Neutrophils # 5.1 K/mm3 (1.8-7.8); Neutrophils % 73.5 % (37.0-80.0); Platelet Count 208 K/mm3 (142-424); Red Blood Count 4.54 M/mm3 (4.60-6.20)
[2020-11-29 11:09] LABS: Alanine Aminotransferase 25 U/L (12-78); Albumin Level 4.2 g/dl (3.5-5.0); Albumin/Globulin Ratio 1.4 (1.1-1.8); Alkaline Phosphatase 99 U/L (38-126); Aspartate Amino Transferase 27 U/L (17-59); Bilirubin,Total 0.7 mg/dl (0.2-1.3); Blood Urea Nitrogen 24 mg/dl (9-20); Calcium 9.3 mg/dl (8.4-10.2); Carbon Dioxide 25 mmol/L (22.0-30.0); Chloride 107 mmol/L (98-107); Chol/HDL Ratio 3.2 (1-3.5); Cholesterol 141 mg/dl (140-200); Estimated Glomerular Filt Rate 55 ml/min (>60); GFR (African American) 66 ML/MIN (>60); Glucose 138 mg/dl (74-100); HDL Cholesterol 44 mg/dl (40-60); Sodium 141 mmol/L (136-145); Total Protein,Serum 7.2 g/dl (6.3-8.2); Triglycerides 100 mg/dl (30-150); VLDL Cholesterol 20 mg/dL (0-40)
[2020-11-29 11:19] LABS: Direct LDL Cholesterol 74.28 mg/dL (100-129)
[2020-11-30 07:46] LABS: Hemoglobin A1C 7.3 % (4.0-6.0)
== END ==
PROVIDERS: Visit Provider Internal Medicine Adolescent Medicine
DX: I25.10 Atherosclerotic heart disease of native coronary artery without angina pectoris (principal); E11.9 Type 2 diabetes mellitus without complications; E78.5 Hyperlipidemia, unspecified; Z79.84 Long term (current) use of oral hypoglycemic drugs
CPT/HCPCS: 36415; 80053; 80061; 83036; 85025

== ENCOUNTER → 2020-12-21 12:42 | Outpatient (CLI) | payer MEDICARE, SELFPAY ==
--- NOTE | 2020-12-21 12:43 | CA_ITS ---
APPROVED REPORT EXAM: Comprehensive 2D, Doppler, and color-flow Echocardiogram Inner Layer Scrubber Tender: Taty Espinoza RT(R) Ht: 5 ft 8 in Wt: 199lbs BSA: 2.04 BP: 134/65 mmHg Indications: CAD, SOA, HTN, DM, hyperlipidemia, 3 cardiac stents, DD 2D Dimensions LVOT 2.09 cm (M/F) 1.5-2.5 LA Volume 40.70 mL LA Volume Index 19.95 mL/m2 (M/F) 16-34 M-Mode Dimensions RVDd 2.48 cm (0.9-2.6) LA Diam 2.58 cm (1.9-4.0) LVDd 4.77 cm (3.5-5.7) Ao Diam 3.19 cm (2.0-3.7) LVDs 3.56 cm (3.5-5.7) IVSd 0.84 cm (0.6-1.1) PWd 0.84 cm (0.6-1.1) EF (Teich) 50.00% FS 25.40% EDV (Teich) 106.00 mL ESV (Teich) 53.00 mL LV Diastology E Decel Time 230.00 (160-240 msec) E/A Ratio 0.9 MED E' 8.20 (< 7 cm/sec) E'/MED E' Ratio 10.95 (>14) LAT E' 9.20 (<10 cm/sec) E/LAT E' Ratio 9.76 (>14) Mitral Valve MV E Max Fco. 90.00 (40-130 cm/s) MV A Velocity 104.00 (40-130 cm/s) E/A Ratio 0.86 MV Decel. Time 230.00 (160-240 ms) MV PHT 67.00 ms Left Ventricle Left atrium is mildly enlarged, left ventricle is normal size, mild concentric left ventricular hypertrophy, visually estimated ejection fraction 55% with no regional wall motion abnormality, grade 1 diastolic dysfunction seen without tissue Doppler evidence of raise left atrial pressure. Right Ventricle Right atrium and right ventricle are mildly enlarged with normal contractility. Aortic Valve Aortic valve is minimally thickened and fibrosed, there is no aortic stenosis or aortic insufficiency. Mitral Valve Mitral valve is grossly normal, there is trace mitral regurgitation. Tricuspid Valve Tricuspid valve grossly normal, there is trace tricuspid regurgitation, tricuspid regurgitation jet velocity is inadequate for calculation of the right ventricular systolic pressure. Pulmonic Valve Pulmonic valve is poorly visualized. Great Vessels Aortic root is normal size. Inferior vena cava is poorly visualized. Pericardium No significant pericardial effusion noted. Conclusion 1. Mild biatrial enlargement, normal left ventricular size, mild concentric left hypertrophy, visually estimated ejection fraction 55% with no regional wall motion abnormality, grade 1 diastolic dysfunction seen without tissue Doppler evidence of raise left atrial pressure. 2. Mildly enlarged right ventricle with normal contractility. 3. Trace mitral and tricuspid regurgitation. 4. No significant pericardial effusion noted. Electronically signed by : Julio Cesar Jennings MD 12/22/2020 13:40:32
== END ==
PROVIDERS: PCP Internal Medicine Adolescent Medicine; Visit Provider Urology
DX: E78.2 Mixed hyperlipidemia (principal); I10 Essential (primary) hypertension; I25.10 Atherosclerotic heart disease of native coronary artery without angina pectoris; Z95.5 Presence of coronary angioplasty implant and graft
CPT/HCPCS: 93306

== ENCOUNTER → 2021-01-18 10:39 | Outpatient (CLI) | payer MEDICARE, SELFPAY ==
[2021-01-18 16:56] LABS: Anion Gap 17.4 mEq/L (5-15); Blood Urea Nitrogen 20 mg/dl (9-20); Calcium 9.1 mg/dl (8.4-10.2); Carbon Dioxide 24 mmol/L (22.0-30.0); Chloride 104 mmol/L (98-107); Estimated Glomerular Filt Rate 66 ml/min (>60); GFR (African American) 80 ML/MIN (>60); Glucose 228 mg/dl (74-100); Potassium 4.4 mmoL/L (3.5-5.1); Sodium 141 mmol/L (136-145)
[2021-01-18 17:27] LABS: Prostate Specific Ag Screen 1.2 ng/ml (0.0-4.0)
== END ==
PROVIDERS: Visit Provider Internal Medicine Adolescent Medicine
DX: E11.9 Type 2 diabetes mellitus without complications (principal); R35.0 Frequency of micturition; Z12.5 Encounter for screening for malignant neoplasm of prostate; Z79.84 Long term (current) use of oral hypoglycemic drugs
CPT/HCPCS: 36415; 80048; G0103

== ENCOUNTER → 2021-02-24 14:05 | Outpatient (CLI) | payer MEDICARE, SELFPAY ==
--- NOTE | 2021-02-24 14:05 | CT_ITS ---
PROCEDURE INFORMATION: Exam: CT Chest Without Contrast; Diagnostic Exam date and time: 02/24/2021 2:05 PM Age: 71 years old Clinical indication: Condition or disease; Other: 6 month follow up TECHNIQUE: Imaging protocol: Diagnostic computed tomography of the chest without contrast. Radiation optimization: All CT scans at this facility use at least one of these dose optimization techniques: automated exposure control; mA and/or kV adjustment per patient size (includes targeted exams where dose is matched to clinical indication); or iterative reconstruction. COMPARISON: CT CHEST W CON 05/20/2020 12:51 PM FINDINGS: Lungs: 12 mm nodule in the right upper lobe series 3, image 23. Additional small calcified nodules bilaterally consistent with prior granulomatous disease Pleural spaces: Unremarkable. No pneumothorax. No pleural effusion. Heart: Coronary artery calcifications may indicate coronary artery disease. Aorta: Unremarkable. No aortic aneurysm. Lymph nodes: Calcified mediastinal and hilar lymph nodes Kidneys and ureters: 17 mm simple cyst lateral right kidney . No follow-up imaging recommended . Bones/joints: Unremarkable. No acute fracture. Soft tissues: Unremarkable. IMPRESSION: 12 mm nodule in the right upper lobe series 3, image 23. It has decreased in size from 13.1 mm For both low risk and high risk patients, consider CT Chest at 3 months, PET/CT, or biopsy. (Reference: Demetrio) References: Demetrio Valdes, et al. Guidelines for Management of Incidental Pulmonary Nodules Detected on CT Images: From the Fleischner Society 2017. Radiology. 2017;284(1):228-243. COMMENTS: Consistent with the [employer]'s Incidental Findings Committee white paper (J Am Luz Radiol 2018): Any incidental renal lesion less than 1 cm or classified as too small to characterize, or any incidental cystic renal lesion characterized as simple-appearing, is likely benign. No follow-up imaging is recommended for these lesions per consensus recommendations based on imaging criteria.
== END ==
PROVIDERS: PCP Internal Medicine Adolescent Medicine; Visit Provider Internal Medicine Pulmonary Disease
DX: R91.1 Solitary pulmonary nodule (principal)
CPT/HCPCS: 71250

== ENCOUNTER → 2022-02-22 15:07 | Outpatient (CLI) | payer MEDICARE, SELFPAY ==
--- NOTE | 2022-02-22 15:08 | CT_ITS ---
FINAL REPORT CLINICAL HISTORY: follow up, area of interest seen on a low dose chest ct scan done last year. COMPARISON: February 2021 FINDINGS: Axial images were obtained from the lung apex to the mid abdomen by computed tomography. Coronal reformatted images were obtained. This study was performed with techniques to keep radiation doses as low as reasonably achievable, (ALARA). Individualized dose reduction techniques using automated exposure control or adjustment of mA and/or kV according to the patient's size were employed. There is no axillary adenopathy. There are calcified subcarinal lymph nodes. Heart size is normal. There is no pericardial or pleural effusion. Limited images of the upper abdomen are unremarkable. There is a 13 x 8 mm right upper lobe nodule the previously measured 13 x 8 mm. This is entirely stable. There is mild irregular density in the periphery of the right lower lobe on image 45 of series 2 that is similar in appearance to the prior exam. There are calcified granulomas in both lungs. IMPRESSION: Stable nodules. Reviewed, Interpreted and Dictated by Jose Antonio Jc MD Transcribed by Bennett Hansen Authenticated and [facility]
== END ==
PROVIDERS: PCP Internal Medicine Adolescent Medicine; Visit Provider Internal Medicine Pulmonary Disease
DX: R91.8 Other nonspecific abnormal finding of lung field (principal)
CPT/HCPCS: 71250

== ENCOUNTER → 2022-03-08 07:02 | Outpatient (CLI) | payer MEDICARE, SELFPAY ==
[2022-03-08 08:40] LABS: Basophils % 0.7 % (0.1-2.0); Eosinophils # 0.1 K/mm3 (0.0-0.4); Eosinophils % 2.7 % (0.1-12.0); Hematocrit 42.8 % (42.0-52.0); Lymphocytes # 0.9 K/mm3 (0.7-4.5); Lymphocytes % 18.9 % (10-50); Mean Corpuscular HGB Conc 32.8 g/dL (31.8-35.4); Mean Corpuscular Hemoglobin 28.9 pg (27.0-31.2); Mean Corpuscular Volume 88.2 fl (80-94); Monocytes # 0.3 K/mm3 (0.1-1.0); Monocytes % 6.7 % (1.7-9.3); Neutrophils # 3.4 K/mm3 (1.8-7.8); Platelet Count 181 K/mm3 (142-424); Red Blood Count 4.86 M/mm3 (4.60-6.20); Red Cell Distribution Width 13.7 % (11.5-17.5); White Blood Count 4.9 K/mm3 (4.8-10.8)
[2022-03-08 08:49] LABS: Hemoglobin A1C 7.3 % (4.0-6.0)
[2022-03-08 09:08] LABS: Alanine Aminotransferase 22 U/L (12-78); Albumin Level 4.3 g/dl (3.5-5.0); Albumin/Globulin Ratio 1.7 (1.1-1.8); Alkaline Phosphatase 128 U/L (38-126); Anion Gap 12.7 mEq/L (5-15); Aspartate Amino Transferase 34 U/L (17-59); Blood Urea Nitrogen 21 mg/dl (9-20); Calcium 9.3 mg/dl (8.4-10.2); Carbon Dioxide 26 mmol/L (22.0-30.0); Chloride 104 mmol/L (98-107); Chol/HDL Ratio 3.4 (1-3.5); Cholesterol 155 mg/dl (140-200); Estimated Glomerular Filt Rate 43 ml/min (>60); GFR (African American) 52 ML/MIN (>60); Globulin 2.6 g/dL (1.3-3.2); Glucose 142 mg/dl (74-100); HDL Cholesterol 46 mg/dl (40-60); Potassium 4.7 mmoL/L (3.5-5.1); Sodium 138 mmol/L (136-145); Total Protein,Serum 6.9 g/dl (6.3-8.2); Triglycerides 76 mg/dl (30-150); VLDL Cholesterol 15 mg/dL (0-40)
[2022-03-08 09:21] LABS: Direct LDL Cholesterol 85.61 mg/dL (100-129)
== END ==
PROVIDERS: PCP Internal Medicine Adolescent Medicine; Visit Provider Internal Medicine Adolescent Medicine
DX: I25.10 Atherosclerotic heart disease of native coronary artery without angina pectoris (principal); E78.5 Hyperlipidemia, unspecified; E11.9 Type 2 diabetes mellitus without complications; Z79.84 Long term (current) use of oral hypoglycemic drugs
CPT/HCPCS: 36415; 80053; 80061; 83036; 85025

== ENCOUNTER → 2022-06-05 06:45 | Outpatient (CLI) | payer MEDICARE, SELFPAY ==
--- NOTE | 2022-06-05 06:46 | CA_ITS ---
APPROVED REPORT EXAM: Comprehensive 2D, Doppler, and color-flow Echocardiogram Crayon Sawyer: TERESA Heart, RVS Ht: 6 ft 0 in Wt: 201lbs BSA: 2.14 BP: 140/66 mmHg Indications: Diastolic dysfunction, CAD-stent, Atypical CP, COPD,DM 2D Dimensions LVDd 4.14 cm M: 4.2 - 5.9 LVEF (Visual) 60.70 % LVDs 2.81 cm M: 2.5 - 4.0 LA Volume 35.70 mL Aortic Root 3.24 cm M: 3.1 - 3.7 LA Volume Index 16.532240 mL/m2 (M/F) 16-34 Left Atrium 3.04 cm M: 3.0 - 4.0 LVOT 1.96 cm (M/F) 1.5-2.5 M-Mode Dimensions RVDd 2.00 cm (0.9-2.6) LA Diam 4.16 cm (1.9-4.0) LVDd 5.14 cm (3.5-5.7) Ao Diam 3.55 cm (2.0-3.7) LVDs 3.96 cm (3.5-5.7) IVSd 0.86 cm (0.6-1.1) PWd 0.78 cm (0.6-1.1) EF (Teich) 45.80% EPSs 0.22 cm FS 23.00% EDV (Teich) 126.10 mL ESV (Teich) 68.30 mL LV Diastology E Decel Time 273.00 (160-240 msec) E/A Ratio 0.70 MED E' 5.80 (< 7 cm/sec) MED A' 9.80 cm/s E'/MED E' Ratio 14.88 (>14) LAT E' 11.50 (<10 cm/sec) LAT A' 8.60 cm/s E/LAT E' Ratio 7.50 (>14) Aortic Valve LVOT Max 95.00 (70-110 cm/s) LVOT VTI 18.05 cm AoV Peak Fco. 137.00 (50-130 cm/s) AO Peak GR. 7.50 mmHg AO Mean GR. 3.70 (<5 mmHg) AO VTI 25.05 (18-25 cm) FRIDA (VTI) 2.17 (2.5-4.5 cm2) Mitral Valve MV A Velocity 123.00 (40-130 cm/s) E/A Ratio 0.70 MV Decel. Time 273.00 (160-240 ms) Pulmonary Valve PV Peak Velocity 126.00 (50-150 cm/s) Tricuspid Valve TR P. Velocity 191.00 cm/s RAP Estimate 10.00 mmHg RVSP 24.60 mmHg Left Ventricle Left atrium is mildly enlarged, left ventricle is normal size mild concentric left ventricular hypertrophy, estimated ejection fraction 55% with no regional wall motion abnormality, grade 1 diastolic dysfunction seen without tissue Doppler evidence of late left atrial pressure. Right Ventricle Right atrium and right ventricular mildly enlarged with normal contractility. Aortic Valve Aortic valve is minimally thickened and fibrosed there is no aortic stenosis aortic insufficiency. Mitral Valve Mitral valve is grossly normal, there is trace mitral regurgitation. Tricuspid Valve Tricuspid grossly normal, there is trace tricuspid regurgitation, tricuspid regurgitation jet velocity is inadequate for calculation of the right ventricular systolic pressure. Pulmonic Valve Pulmonic valve is poorly visualized. Great Vessels Aortic root is normal size. Inferior vena cava is poorly visualized. Pericardium No significant pericardial effusion noted. Conclusion 1. Mild biatrial enlargement, normal left ventricular size, mild concentric left ventricular hypertrophy, estimated ejection fraction 55% with no regional wall motion abnormality, grade 1 diastolic dysfunction seen without tissue Doppler evidence of late left atrial pressure. 2. Mildly enlarged right ventricle with normal contractility. 3. Trace mitral and tricuspid regurgitation. 4. No significant pericardial effusion noted. 5. Inferior vena cava is poorly visualized. Electronically signed by : Julio Cesar Jennings MD 06/05/2022 19:47:14
--- NOTE | 2022-06-05 06:46 | CA_ITS ---
APPROVED REPORT Exam: Exercise Treadmill Technologist: Olinda Levy Ht: 6 ft 0 in Wt: 201 lbs BSA: 2.14 m2 HR: 64 bpm BP: 154/61 mmHg Indications: Chest pain Medical History Medications: Losartan,,,,, Pantoprazole,,,,, Atorvastatin,,,,, Farxiga,,,,, SyMBICORT,,,,, TAMSULOSIN,,,,, CloPIdogrel,,,,, Januvia,,,,, Magnesium,,,,, Celecoxib,,,,, Metamucil,,,,, KErendia,,,,, Stress Test Details Test: Sandoval HR Resting HR: 66 bpm Max Heart Rate (APMHR): 149.222346 bpm Max HR Achieved: 145 bpm Target HR (85% APMHR): 126.818714 bpm % of APMHR: 97.32 Recovery HR: 94 bpm BP Resting BP: 154.0/61.0 mmHg Max BP: 220.0/60.0 mmHg Recovery BP: 172.0/64.0 mmHg ECG Resting ECG: Normal sinus rhythm Clinical Exercise duration: 08:30 min Highest Stage Achieved: Exercise capacity: 10.1 METs Stress ECG Conclusion Patient exercised 8:30 into stage III of Sandoval Protocol. Test stopped due to shortness of air, fatigue. Symptoms: No chest pain. Arrhythmias/Ectopy: Occasional PAC and PVC. ST-T Changes: Within normal ST response to exercise. Conclusion: Normal GXT. Myoview images reported separately. Test Summary REST . . . . . . . Sitting REST 04:02 0.0 0.0 66 . 154/ 61 . . Stage 1 01:00 10.0 1.7 85 . . . . Stage 1 02:00 10.0 1.7 95 . . . . Stage 1 03:00 10.0 1.7 102 . 200/ 65 . . Stage 2 01:00 12.0 2.5 108 . . . . Stage 2 02:00 12.0 2.5 114 . . . . Stage 2 03:00 12.0 2.5 121 . 220/ 60 . . Stage 3 01:00 14.0 3.4 137 . . . . Stage 3 . . . . . . . Myoview Injected Stage 3 02:00 14.0 3.4 141 . . . . Stage 3 02:30 14.0 3.4 144 . . . Stop exercise at 08:30 RECOVERY 01:00 0.0 0.0 128 . . . . RECOVERY 02:00 0.0 0.0 114 . . . . RECOVERY 03:00 0.0 0.0 105 . 201/ 71 . . RECOVERY 04:00 0.0 0.0 96 . 199/ 66 . . RECOVERY 05:00 0.0 0.0 93 . 199/ 66 . . RECOVERY 05:28 0.0 0.0 93 . 172/ 64 . . Electronically signed by : Julio Cesar Jennings MD 06/05/2022 18:54:48
--- NOTE | 2022-06-05 06:46 | NM_ITS ---
APPROVED REPORT Exam: Nuclear Stress Test Indication: CAD, 3 STENTS, HTN, DM, HYPERLIPIDEMIA, C.P., FATIGUE Patient Location: Outpatient Stress Tech: Olinda Levy OR Tech:Kia MckennaFREDO RT (R)(N)(M) Ht: 6 ft 0 in Wt: 200 lbs HR: 64 bpm BP: 154/61 mmHg BSA: 2.13 m2 TID: 0.93 Procedure: Patient exercised on Sandoval protocol 8:30 minutes and sec, resting heart rate 64 bpm, resting blood pressure 154/61 mmHg, with exercise maximum heart rate achived was 145 bpm which is 97 % of the maximum predicted heart rate and blood pressure was 220/60 mmHg. Test was stopped due to FATIGUE. Patient denied any complaint of chest pain. Patient has Good exercise capacity, achieved 10.1 METs of workload on treadmill, the blood pressure response to exercise was Hypertensive. Electrocardiogram Resting electrocardiogram shows sinus rhythm, with exercise there is less than 1.[address] segment depression noted from the baseline EKG. The EKG portion of the exercise Myoview is negative for ischemia. Cardiac Stress and Resting SPECT Images: Cardiac Stress and Resting SPECT images were obtained using technetium 99m Myoview 29.7 mCi stress and 10.21 mCi at rest. Gated SPECT analysis of segmental wall motion and calculation of the ejection fraction also done. Prone images were also obtained. Cardiac prone images show uniform myocardial activity without segmental perfusion abnormality, computer derived ejection fraction is 59% with no regional wall motion abnormality, right ventricle is normal size and contractility. Conclusion: 1. The EKG portion of the exercise Myoview is negative for ischemia, patient has good exercise capacity achieved 10.1 METs of workload on treadmill, the blood pressure response to exercise was hypertensive, there was no exercise induced chest discomfort. 2. No scintigraphic evidence of reversible ischemia seen, computer derived ejection fraction is 59% with no regional wall motion abnormality, right ventricle is normal size and contractility. 3. Normal exercise Myoview study except for hypertensive blood pressure response. Electronically signed by : Julio Cesar Jennings MD 06/05/2022 19:14:05
== END ==
PROVIDERS: PCP Internal Medicine Adolescent Medicine; Visit Provider Nurse Practitioner
DX: E11.9 Type 2 diabetes mellitus without complications (principal); E78.2 Mixed hyperlipidemia; I10 Essential (primary) hypertension; I25.10 Atherosclerotic heart disease of native coronary artery without angina pectoris; J44.9 Chronic obstructive pulmonary disease, unspecified; R07.89 Other chest pain; R42 Dizziness and giddiness; Z95.5 Presence of coronary angioplasty implant and graft; Z79.84 Long term (current) use of oral hypoglycemic drugs
CPT/HCPCS: 78452; 93017; 93306; A9502

== ENCOUNTER 2022-08-01 08:24 | Day surgery (SDC) | payer MEDICARE, SELFPAY ==
[2022-08-01] VITALS (12 sets, daily range): BP systolic 117–165; BP diastolic 54–78; PULSE 57–70; RESP 14–20; TEMP 36.9; O2SAT 95–98; BMI 27.6
--- NOTE | 2022-08-01 07:06 | IR_ITS ---
APPROVED REPORT Patient Location: Outpatient PROCEDURES Left heart catheterization Left ventriculogram Selective coronary angiogram INDICATION Worsening angina pectoris, Near syncope, Known coronary artery disease Informed consent was obtained prior to the procedure. COMPLICATIONS None Estimated Blood Loss: Less than 10 ML TECHNIQUE One percent lidocaine used to anesthetize the right anterior aspect of the wrist. The right radial artery was accessed via the Seldinger technique. A 6 Fijian sheath was placed in the right radial artery. 150 mg magnesium sulfate, 800 mcg of nitroglycerin, 1mg Lidocaine and 5000 U Heparin were given through the arterial sheath. The papa catheter was also used to perform left heart catheterization, left ventriculogram and selective coronary angiogram. At the end of the procedure the sheath was removed good hemostasis was achieved using Traclet band, patient was transferred to the postop holding area in stable condition. ANGIOGRAPHIC RESULTS The left main artery Has distal 10% stenosis The left anterior descending artery Is a large vessel and has proximal 30% stenosis with mid vessel 10% stenoses The circumflex artery Is a dominant vessel and has a stent in the proximal segment which is widely patent with minimal in-stent restenosis and excellent proximal distal transitioning The right coronary artery Nondominant and has an ostial 10 to 20% stenosis with diffuse 10% luminal irregularity The MELISSA ventriculogram reveals Normal 65% The left ventricular end-diastolic pressure 10 mmHg IMPRESSION Coronary disease as described above all of which is currently nonflow limiting Normal ejection fraction Normal left ventricular end-diastolic pressure PLAN 1. Continue medical management Electronically signed by : Adam Luna MD 08/01/2022 12:50:13
[2022-08-01 08:59] LABS: Basophils % 0.6 % (0.1-2.0); Eosinophils # 0.2 K/mm3 (0.0-0.4); Eosinophils % 3.5 % (0.1-12.0); Hematocrit 42.7 % (42.0-52.0); Hemoglobin 14.6 g/dL (14.1-18.0); Lymphocytes # 1.1 K/mm3 (0.7-4.5); Lymphocytes % 24.9 % (10-50); Mean Corpuscular HGB Conc 34.2 g/dL (31.8-35.4); Mean Corpuscular Hemoglobin 29.3 pg (27.0-31.2); Mean Corpuscular Volume 85.6 fl (80-94); Mean Platelet Volume 7.6 fl (7.4-10.4); Monocytes # 0.4 K/mm3 (0.1-1.0); Monocytes % 8.4 % (1.7-9.3); Neutrophils # 2.8 K/mm3 (1.8-7.8); Neutrophils % 62.6 % (37.0-80.0); Platelet Count 183 K/mm3 (142-424); Red Blood Count 4.99 M/mm3 (4.60-6.20); Red Cell Distribution Width 13.9 % (11.5-17.5); White Blood Count 4.4 K/mm3 (4.8-10.8)
[2022-08-01 09:17] LABS: Anion Gap 17.9 mEq/L (5-15); Blood Urea Nitrogen 20 mg/dl (9-20); Calcium 8.2 mg/dl (8.4-10.2); Carbon Dioxide 24 mmol/L (22.0-30.0); Chloride 100 mmol/L (98-107); Creatinine Clearance Estimated 68 mL/min (50-200); Estimated Glomerular Filt Rate 54 ml/min (>60); GFR (African American) 66 ML/MIN (>60); Glucose 140 mg/dl (74-100); Potassium 3.9 mmoL/L (3.5-5.1); Sodium 138 mmol/L (136-145)
== END 2022-08-01 14:44 | disposition home or self-care (01) ==
PROVIDERS: PCP Internal Medicine Adolescent Medicine; Visit Provider Internal Medicine
DX: I25.119 Atherosclerotic heart disease of native coronary artery with unspecified angina pectoris (principal); R55 Syncope and collapse; Z95.5 Presence of coronary angioplasty implant and graft; E78.2 Mixed hyperlipidemia
CPT/HCPCS: 80048; 85025; 93458; 99152; C1725; C1760; C1769; J1644; Q9967

== ENCOUNTER → 2022-08-13 09:16 | Outpatient (CLI) | payer MEDICARE, SELFPAY | PROVIDERS: PCP Internal Medicine Adolescent Medicine; Visit Provider Physician Assistant | DX: E78.2 Mixed hyperlipidemia (principal); I10 Essential (primary) hypertension; I25.10 Atherosclerotic heart disease of native coronary artery without angina pectoris; I51.89 Other ill-defined heart diseases; R00.2 Palpitations; R55 Syncope and collapse; Z95.5 Presence of coronary angioplasty implant and graft | CPT/HCPCS: 93270 ==

== ENCOUNTER → 2022-08-15 09:50 | Outpatient (CLI) | payer MEDICARE, SELFPAY ==
--- NOTE | 2022-08-15 09:51 | CA_ITS ---
FINAL REPORT TECHNIQUE: Color Doppler, duplex Doppler and rodrigues scale sonography of the bilateral neck arterial vasculature was performed. Velocities were measured in the carotid arteries. Stenosis evaluation based on the validated velocity criteria. CLINICAL HISTORY: near syncopal episode x 5, CAD, HTN, HLD, DM. FINDINGS: The peak systolic velocity of the right common carotid artery is 144 cm/s. The peak systolic velocity of the right internal carotid artery is 111 cm/s and end diastolic velocity 31 cm/s. The ICA/CCA ratio is 0.9. A small amount of plaque is present. The right external carotid artery is patent. The right vertebral artery is patent with antegrade flow. The peak systolic velocity of the left common carotid artery is 142 cm/s. The peak systolic velocity of the left internal carotid artery is 101 cm/s and end diastolic velocity 26 cm/s. The ICA/CCA ratio is 0.8. A small amount of plaque is present. The left external carotid artery is patent.The left vertebral artery is patent with antegrade flow. IMPRESSION: Less than 50% bilateral carotid stenoses. Bilateral patent vertebral arteries with antegrade flow. If indicated, CTA or MRA could further evaluate. Reviewed, Interpreted and Dictated by Deejay Espinoza III, MD Transcribed by Sybil Edmondson Authenticated and . [facility]
== END ==
PROVIDERS: PCP Internal Medicine Adolescent Medicine; Visit Provider Physician Assistant
DX: R55 Syncope and collapse (principal)
CPT/HCPCS: 93880

== ENCOUNTER → 2022-12-21 07:12 | Outpatient (CLI) | payer MEDICARE, SELFPAY ==
[2022-12-21 07:39] LABS: Basophils % 0.8 % (0.1-2.0); Eosinophils # 0.2 K/mm3 (0.0-0.4); Eosinophils % 4.7 % (0.1-12.0); Hematocrit 44.7 % (42.0-52.0); Hemoglobin 14.8 g/dL (14.1-18.0); Lymphocytes # 1.2 K/mm3 (0.7-4.5); Mean Corpuscular HGB Conc 33.2 g/dL (31.8-35.4); Mean Corpuscular Hemoglobin 29.4 pg (27.0-31.2); Mean Corpuscular Volume 88.6 fl (80-94); Mean Platelet Volume 7.3 fl (7.4-10.4); Monocytes # 0.3 K/mm3 (0.1-1.0); Monocytes % 5.7 % (1.7-9.3); Neutrophils % 63.9 % (37.0-80.0); Platelet Count 168 K/mm3 (142-424); Red Blood Count 5.05 M/mm3 (4.60-6.20); Red Cell Distribution Width 13.9 % (11.5-17.5); White Blood Count 4.8 K/mm3 (4.8-10.8)
[2022-12-21 08:34] LABS: Hemoglobin A1C 7.3 % (4.0-6.0)
[2022-12-21 09:08] LABS: Alanine Aminotransferase 25 U/L (12-78); Albumin Level 4.4 g/dl (3.5-5.0); Albumin/Globulin Ratio 1.5 (1.1-1.8); Alkaline Phosphatase 101 U/L (38-126); Anion Gap 12.6 mEq/L (5-15); Aspartate Amino Transferase 24 U/L (17-59); Bilirubin,Total 0.8 mg/dl (0.2-1.3); Blood Urea Nitrogen 18 mg/dl (9-20); Carbon Dioxide 28 mmol/L (22.0-30.0); Chloride 103 mmol/L (98-107); Chol/HDL Ratio 4.1 (1-3.5); Cholesterol 190 mg/dl (140-200); Estimated Glomerular Filt Rate 54 ml/min (>60); GFR (African American) 66 ML/MIN (>60); Globulin 2.9 g/dL (1.3-3.2); Glucose 156 mg/dl (74-100); HDL Cholesterol 46 mg/dl (40-60); Potassium 4.6 mmoL/L (3.5-5.1); Sodium 139 mmol/L (136-145); Total Protein,Serum 7.3 g/dl (6.3-8.2); Triglycerides 163 mg/dl (30-150); VLDL Cholesterol 33 mg/dL (0-40)
[2022-12-21 09:19] LABS: Direct LDL Cholesterol 104.28 mg/dL (100-129)
[2022-12-21 09:25] LABS: Free Thyroxine Index 2.3 ug/dL (5.93-13.13); T4 (Thyroxine) 6.5 ug/dl (5.53-11.0); Triiodothryronine (T3) Uptake 36 % (23.5-40.5)
[2022-12-21 09:38] LABS: Thyroid Stimulating Hormone 1.94 uIU/mL (0.465-4.68)
== END ==
PROVIDERS: PCP Internal Medicine Adolescent Medicine; Visit Provider Internal Medicine Adolescent Medicine
DX: E11.9 Type 2 diabetes mellitus without complications (principal); N40.1 Benign prostatic hyperplasia with lower urinary tract symptoms; I25.10 Atherosclerotic heart disease of native coronary artery without angina pectoris; K50.90 Crohn's disease, unspecified, without complications; Z79.84 Long term (current) use of oral hypoglycemic drugs; I10 Essential (primary) hypertension
CPT/HCPCS: 36415; 80053; 80061; 83036; 84436; 84443; 84479; 85025

== ENCOUNTER → 2022-12-25 10:14 | Outpatient (CLI) | payer MEDICARE, SELFPAY ==
[2022-12-31 18:20] LABS: Lactoferrin, Fecal, Quant. 1.76 ug/mL(g) (0.00-7.24)
[2023-01-01 22:39] LABS: Fats, Neutral Normal (.); Fats, Total Normal (.)
== END ==
PROVIDERS: Internal Medicine Adolescent Medicine; Visit Provider Internal Medicine Pulmonary Disease
DX: R06.02 Shortness of breath (principal)
CPT/HCPCS: 82705; 83630; 87205

== ENCOUNTER → 2023-01-16 11:30 | Outpatient (CLI) | payer MEDICARE, SELFPAY | PROVIDERS: PCP Internal Medicine Adolescent Medicine; Visit Provider Internal Medicine Adolescent Medicine | DX: R00.2 Palpitations (principal) | CPT/HCPCS: 93225; 93226 ==

== ENCOUNTER → 2023-03-11 11:01 | Outpatient (CLI) | payer MEDICARE, SELFPAY ==
[2023-03-11 11:34] LABS: Basophils % 0.2 % (0.1-2.0); Eosinophils # 0.1 K/mm3 (0.0-0.4); Eosinophils % 1.8 % (0.1-12.0); Hematocrit 43.7 % (42.0-52.0); Hemoglobin 15.1 g/dL (14.1-18.0); Lymphocytes # 0.9 K/mm3 (0.7-4.5); Mean Corpuscular HGB Conc 34.4 g/dL (31.8-35.4); Mean Corpuscular Hemoglobin 30.5 pg (27.0-31.2); Mean Corpuscular Volume 88.6 fl (80-94); Mean Platelet Volume 6.9 fl (7.4-10.4); Monocytes # 0.3 K/mm3 (0.1-1.0); Monocytes % 4.9 % (1.7-9.3); Neutrophils # 4.1 K/mm3 (1.8-7.8); Neutrophils % 77.1 % (37.0-80.0); Platelet Count 155 K/mm3 (142-424); Red Blood Count 4.94 M/mm3 (4.60-6.20); White Blood Count 5.4 K/mm3 (4.8-10.8)
[2023-03-11 11:47] LABS: Hemoglobin A1C 7.7 % (4.0-6.0)
[2023-03-11 12:38] LABS: Alanine Aminotransferase 22 U/L (12-78); Albumin Level 4.1 g/dl (3.5-5.0); Albumin/Globulin Ratio 1.4 (1.1-1.8); Alkaline Phosphatase 128 U/L (38-126); Anion Gap 12.1 mEq/L (5-15); Aspartate Amino Transferase 23 U/L (17-59); Bilirubin,Total 0.8 mg/dl (0.2-1.3); Blood Urea Nitrogen 20 mg/dl (9-20); Calcium 8.4 mg/dl (8.4-10.2); Carbon Dioxide 25 mmol/L (22.0-30.0); Chloride 104 mmol/L (98-107); Estimated Glomerular Filt Rate 50 ml/min (>60); GFR (African American) 60 ML/MIN (>60); Glucose 271 mg/dl (74-100); Potassium 4.1 mmoL/L (3.5-5.1); Sodium 137 mmol/L (136-145); Total Protein,Serum 7.1 g/dl (6.3-8.2)
== END ==
PROVIDERS: PCP Internal Medicine Adolescent Medicine; Visit Provider Internal Medicine Adolescent Medicine
DX: E11.69 Type 2 diabetes mellitus with other specified complication; N18.2 Chronic kidney disease, stage 2 (mild); Z79.84 Long term (current) use of oral hypoglycemic drugs; Z79.85 Long-term (current) use of injectable non-insulin antidiabetic drugs; I12.9 Hypertensive chronic kidney disease with stage 1 through stage 4 chronic kidney disease, or unspecified chronic kidney disease
CPT/HCPCS: 36415; 80053; 83036; 85025

== ENCOUNTER 2023-03-28 12:31 | Day surgery (SDC) | payer MEDICARE, SELFPAY ==
[2023-03-28 12:39] VITALS: BMI 27.3
[2023-03-28 12:52] VITALS: BP 184/89; PULSE 70; RESP 20; O2SAT 95
[2023-03-28 13:19] VITALS: BP 184/89; PULSE 75; RESP 20; O2SAT 95
--- NOTE | 2023-03-28 15:20 | P.PCN_ITS ---
[facility] Loop Recorder Date: 03/28/23 Time: 13:00 Procedure Performed:: Implantation of loop recorder Indication:: Palpitations Near syncope Technique:: Patient was brought to the cardiac Convention Services Director. After informed consent obtained, 1% lidocaine with epinephrine was used to anesthetize the site along the left anterior aspect of the chest near the sternal border. Using the preformed scalpel, an incision was made and using the supplied preloaded apparatus, the loop recorder was placed subcutaneously without difficulty. Following the deployment of the loop recorder interrogation of the device was performed to ensure appropriate voltage was being detected. Once this was verified, Steri- Strips were placed over the incision and the patient was prepped to discharge home. Patient tolerated the procedure well with minimal discomfort. Impression:: Successful implantation of loop recorder Serial Number:: Scooterst-IQ EL plus Model number [id number] Serial #[id number] Plan:: Routine postop care
== END 2023-03-28 14:04 | disposition home or self-care (01) ==
PROVIDERS: PCP Internal Medicine Adolescent Medicine; Visit Provider Internal Medicine
DX: R55 Syncope and collapse (principal); I25.10 Atherosclerotic heart disease of native coronary artery without angina pectoris; I10 Essential (primary) hypertension; Z79.899 Other long term (current) drug therapy
CPT/HCPCS: 33285; C1764

== ENCOUNTER 2023-05-02 09:12 | Outpatient (CLI) | payer MEDICARE, SELFPAY ==
--- NOTE | 2023-05-02 09:13 | CT_ITS ---
FINAL REPORT TECHNIQUE: Axial CT images were performed from the lung apices through the upper abdomen. Coronal and sagittal reformats were submitted. This study was performed with techniques to keep radiation doses as low as reasonably achievable (ALARA). Individualized dose reduction techniques using automated exposure control or adjustment of mA and/or kV according to the patient's size were employed. CLINICAL HISTORY: 12 month follow-up COMPARISON: 02/22/2022 FINDINGS: There is no axillary adenopathy. There is no hilar or mediastinal mass or adenopathy. Severe coronary artery calcifications are present. Heart size is normal. Note is made of a left anterior chest wall loop recorder. There is no pericardial or pleural effusion. Mild changes of emphysema remain present as well as several calcified granulomas. Limited images of the upper abdomen are unremarkable. There is a nodule in the right apex which measures 4 mm best seen on image #13, stable since the prior chest CT. There is a lobular nodule in the posterior right upper lobe, 14 x 9 mm in size, also stable. There is a partially improved right lower lobe lateral opacity, on today's exam measures 10 mm, was 13 mm. IMPRESSION: Multiple nodules noted on prior CT are stable. The opacity in the lateral right lower lobe is partially improved as described. Mild changes of emphysema and severe coronary artery calcifications remain present. No new masses or nodules are identified. Reviewed, Interpreted and Dictated by Deejay Espinoza III, MD Transcribed by Katiana Latham Authenticated and [facility]
== END 2023-05-02 23:59 ==
LOC: RAD 09:12
PROVIDERS: PCP Internal Medicine Adolescent Medicine; Visit Provider Internal Medicine Pulmonary Disease
DX: R91.8 Other nonspecific abnormal finding of lung field (principal)
CPT/HCPCS: 71250

== ENCOUNTER 2023-06-21 07:26 | Day surgery (SDC) | payer MEDICARE, SELFPAY ==
[2023-06-21] VITALS (7 sets, daily range): BP systolic 114–142; BP diastolic 62–67; PULSE 61–75; RESP 14–18; TEMP 36.4–36.6; O2SAT 95–97; BMI 27.1
[2023-06-21] MEDS: LACTATED RINGERS 1000ML 1,000 ML 25 ML IV (07:58)
[2023-06-21 08:08] LABS: POC Glucose,Bedside 124 (70-110)
--- NOTE | 2023-06-21 08:18 | [facility]H.SCOPE ---
Procedure: Date: 06/21/23 Patient Date of :: 1950 Procedure Performed:: Total colonoscopy to terminal ileum with polypectomy Indications:: Patient is a 73-year-old male. I had performed colonoscopy and EGD on 02/18/2018. He had positivity for H. pylori. He also had a tubular adenoma in the transverse colon and a 5-year colonoscopy was recommended. Performing Provider:: Deejay Webber MD Referring Provider:: Kaden Smith MD Sedation:: MAC sedation Procedure:: Patient history was obtained and appropriate physical examination was performed. Patient's medications and allergies were reviewed. Informed consent was obtained after explaining the benefits, alternatives, and risks of the procedure including, but not limited to, bleeding, perforation, missed lesions, and adverse reaction to anesthesia medications. Patient was transported to endoscopy procedure room. Patient was connected to monitoring devices. Throughout the procedure the patient's blood pressure, pulse, and oxygen saturations were monitored continuously. Patient identification and planned procedure were verified by the staff. Patient was positioned in lateral decubitus position. Digital anorectal exam was performed. Variable stiffness Olympus colonoscope was inserted and advanced under direct visualization to the cecum. Adequacy of the colonic preparation was noted. The colonoscope was advanced a short distance into the terminal ileum. The colonoscope was then slowly withdrawn while carefully examining the color, texture, anatomy, and integrity of the mucosoa circumferentially. Within the rectum retroflexion was performed. Colonoscope was then withdrawn. . Colonic preparation was good. He had a small adenomatous polyp in the descending colon removed with cold snare. Residual base of polyp was removed with biopsy forceps. In the rectosigmoid region there were multiple hyperplastic appearing polyps. Larger of these were removed with biopsy forceps. Retroflexion within the rectum revealed internal anal papillae. . Findings:: Polyps as noted above Internal anal papilla Recommendations:: Likely repeat colonoscopy 5 years Complications:: None immediately apparent Estimated blood obtained (mL): 1 Colonoscopy Component Colonoscopy Component Was a colonoscopy performed during today's procedure?: Yes Recommended follow up colonoscopy of at least 10 years?: No If no, follow up colonoscopy recommended in ___ years?: 5 Reason for not recommending >/= 10 yr follow-up interval?: Polyp
--- NOTE | 2023-06-21 10:02 | EXP.ANES.I ---
[facility] Anesthesia Record Part I Anesthesia Record I Intake, IV Amount: 350 Hydration: Adequate Estimated blood loss (mL): 1 Urine output (mL): 0 Blood Products used (#): none Blood Pressure: 114/62 SaO2: 96 Pulse Rate: 64 Airway Patency: Patent Respiratory Rate: 16 Temperature: 97.9 F Patient is:: Drowsy and Stable Stable to PACU at:: 10:04
== END 2023-06-21 10:31 | disposition home or self-care (01) ==
PROVIDERS: PCP Internal Medicine Adolescent Medicine; Visit Provider Surgery
PROC: 0DJD8ZZ Inspection of Lower Intestinal Tract, Via Natural or Artificial Opening Endoscopic (ICD-10-PCS; CPT 45380; principal; 2023-06-21 08:30)
DX: Z12.11 Encounter for screening for malignant neoplasm of colon (principal); D12.4 Benign neoplasm of descending colon; K63.5 Polyp of colon; B96.81 Helicobacter pylori [H. pylori] as the cause of diseases classified elsewhere; K62.89 Other specified diseases of anus and rectum; N40.0 Benign prostatic hyperplasia without lower urinary tract symptoms; E11.9 Type 2 diabetes mellitus without complications
CPT/HCPCS: 45380; 45385; 82962; 88305

== ENCOUNTER 2024-04-29 10:58 | Outpatient (CLI) | payer MEDICARE, SELFPAY ==
[2024-04-29 11:46] LABS: Basophils % 0.4 % (0.1-2.0); Eosinophils # 0.1 K/mm3 (0.0-0.4); Eosinophils % 1.1 % (0.1-12.0); Hematocrit 44.7 % (42.0-52.0); Hemoglobin 15.2 g/dL (14.1-18.0); Lymphocytes # 1.3 K/mm3 (0.7-4.5); Lymphocytes % 17.7 % (10-50); Mean Corpuscular Volume 88.3 fl (80-94); Mean Platelet Volume 9.5 fl (7.4-10.4); Monocytes # 0.5 K/mm3 (0.1-1.0); Monocytes % 6.4 % (1.7-9.3); Neutrophils # 5.4 K/mm3 (1.8-7.8); Neutrophils % 73.7 % (37.0-80.0); Platelet Count 175 K/mm3 (142-424); Red Blood Count 5.06 M/mm3 (4.60-6.20); White Blood Count 7.3 K/mm3 (4.8-10.8)
[2024-04-29 12:08] LABS: Chloride 103 mmol/L (98-107)
[2024-04-29 12:09] LABS: Potassium 4.4 mmoL/L (3.5-5.1); Sodium 139 mmol/L (136-145)
[2024-04-29 12:11] LABS: Alanine Aminotransferase 31 U/L (12-78); Albumin/Globulin Ratio 2.5 (1.1-1.8); Alkaline Phosphatase 105 U/L (38-126); Amylase 63 U/L (30-110); Anion Gap 12.4 mEq/L (5-15); Aspartate Amino Transferase 27 U/L (17-59); Bilirubin,Total 0.9 mg/dl (0.2-1.3); Blood Urea Nitrogen 27 mg/dl (9-20); Carbon Dioxide 28 mmol/L (22.0-30.0); Estimated Glomerular Filt Rate 54 ml/min (>60); GFR (African American) 65 ML/MIN (>60)
[2024-04-29 12:12] LABS: Calcium 9.1 mg/dl (8.4-10.2); Glucose 145 mg/dl (74-100); Lipase 167 U/L (23-300)
--- NOTE | 2024-04-29 12:46 | CT_ITS ---
FINAL REPORT TECHNIQUE: After the administration of oral and intravenous contrast, axial images were obtained through the abdomen and pelvis by computed tomography. Coronal and sagittal reconstructed images were obtained and reviewed. The study was performed with techniques to keep radiation dose as low as reasonably achievable, (ALARA). Individual dose reduction techniques using automated exposure control or adjustment of mA and/or kV according to the patient's size were employed. CLINICAL HISTORY: LT FLANK PAIN COMPARISON: 01/13/2017 FINDINGS: Abdomen: There is a calcified granuloma in the right base. There is a noncalcified nodule at the left base measuring 5 mm best seen on image #4 of series 2. This region was not included in the [id number] on the prior exam. There is moderate diffuse fatty infiltration of the liver. The gallbladder is present. The spleen, pancreas, and adrenals appear unremarkable. An exophytic benign-appearing cyst measuring 1.1 cm is seen arising from the posterior aspect of the right kidney. The aorta is normal in caliber. There is no free fluid or adenopathy. Pelvis: The appendix is unremarkable. The urinary bladder is of normal size and configuration. There is no free fluid or adenopathy. There are advanced changes of degenerative disc disease at L5-S1 with high-grade left neuroforaminal narrowing at L5-S1. IMPRESSION: Fatty liver. High-grade narrowing left L5-S1. Nodule at left base. Recommend follow-up in 1 year per Fleischner criteria. Reviewed, Interpreted and Dictated by Jose Antonio Jc MD Transcribed by Summer Zamudio Authenticated and [facility]
[2024-04-29] MEDS: DIATRIZOATE MEGLUMINE(GASTROGRAFIN) 66%-10% 120ML 20 ML PO (13:16)
[2024-04-29] MEDS: SODIUM CHLORIDE 0.9% 10ML SYR (RAD ONLY) 10 ML IV (13:16)
[2024-04-29] MEDS: IOPAMIDOL-370 (76%);100ML BOTTLE 75 ML IV (13:16)
== END 2024-04-29 23:59 | disposition home or self-care (01) ==
LOC: RAD 10:59
PROVIDERS: PCP Internal Medicine Adolescent Medicine; Visit Provider Internal Medicine Adolescent Medicine
DX: R10.32 Left lower quadrant pain (principal); R10.9 Unspecified abdominal pain
CPT/HCPCS: 36415; 74177; 80053; 82150; 83690; 85025; Q9963; Q9967

== ENCOUNTER 2024-06-01 07:46 | Outpatient (CLI) | payer MEDICARE, SELFPAY ==
[2024-06-01 08:35] VITALS: PULSE 64; PULSE 72
[2024-06-01] MEDS: ALBUTEROL 0.083% 2.5 MG/3 ML NEB IH (08:35)
== END 2024-06-01 23:59 | disposition home or self-care (01) ==
LOC: RT 07:46
PROVIDERS: PCP Internal Medicine Adolescent Medicine; Visit Provider Internal Medicine Pulmonary Disease
DX: R06.09 Other forms of dyspnea (principal)
CPT/HCPCS: 94060; 94618; 94640; 94726; 94729; J7613